=== PATIENT | female | born 1970 | race Caucasian/White ===

== ENCOUNTER 2019-04-17 19:44 | Emergency (ER) | payer MEDICAID ==
[~2019-04-17] VITALS: Ht 154.9 cm; Wt 50.0 kg
[2019-04-17 19:45] VITALS: BP 122/67
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
--- NOTE | 2019-04-17 19:55 | NUR ---
OUTSIDE OF ER LOBBY SAW PATIENT BEING GENTLY CARRIED AWAY BY A MAN. HE PICKED HER UP FROM THE CEMENT
--- NOTE | 2019-04-17 20:15 | NUR ---
PATIENT IN FASTRACK SCREAMING OBSCENITIES, THREW HERSELF ON THE FLOOR FROM HER CHAIR IN BED C AND WAS CRAWLING ACROSS THE FLOOR SCREAMING "YOU FUCKERS WONT HELP ME" "BITCHES" ATTEMPTED TO REASON WITH PATIENT THAT SHE CAN NOT BE SEEN BY A MD OR PA IF SHE IS IN THE MIDDLE OF THE FLOOR. ALSO, SECURITY TOLD PATIENT SHE CAN EITHER GET BACK IN HER ROOM FOR TREATMENT OR BE ESCORTED OUT. PATIENT CHOOSE TO STAY: ASSISTED PATIENT INTO A WHEELCHAIR AND BACK TO [facility]
[2019-04-17] MEDS ORDERED: HYDROcodone/acetaminophen 5mg/325mg tablet PO ONE (20:20)
--- NOTE | 2019-04-17 20:25 | NUR ---
PATIENT AGREEING TO STAY AND BE TREATED AFTER 2 PREVIOUS OUTBURSTS: ONE OUTSIDE AND ONE INSIDE IN FASTTRACK. PATIENT LITERALLY YELLING OUT IN PAIN: DEFORMITY TO RIGHT ANKLE PATIENT REFUSED TO KEEP LEG FROM MOVING TO ASSESS FOOT/ ANKLE: COLOR PINK
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
[2019-04-17] MEDS ORDERED: HYDR-3965 PO (20:57)
== END 2019-04-17 21:06 | disposition home or self-care (01) ==
LOC: ER 19:45
DX: S82.831A Other fracture of upper and lower end of right fibula, initial encounter for closed fracture (principal); F17.200 Nicotine dependence, unspecified, uncomplicated; Z98.890 Other specified postprocedural states; X50.1XXA Overexertion from prolonged static or awkward postures, initial encounter; Y93.89 Activity, other specified; Y92.89 Other specified places as the place of occurrence of the external cause; Y99.8 Other external cause status
CPT/HCPCS: 29515; 73610; 99283

== ENCOUNTER 2019-04-20 12:54 | Emergency (ER) | payer MEDICAID ==
[~2019-04-20] VITALS: Ht 160 cm; Wt 52.3 kg
[~2019-04-20 12:54] MED LIST: HYDR-3965 PO
[2019-04-20 13:02] VITALS: BP 110/79
[2019-04-20] MEDS ORDERED: ibuprofen tablet 400 MG TABLET PO ONE (13:40)
[2019-04-20] MEDS ORDERED: IBUP-1984 PO (13:42)
[2019-04-20] MEDS ORDERED: HYDR-4383 PO (13:42)
== END 2019-04-20 13:49 | disposition home or self-care (01) ==
LOC: ER 12:55
DX: S82.831D Other fracture of upper and lower end of right fibula, subsequent encounter for closed fracture with routine healing (principal); F10.99 Alcohol use, unspecified with unspecified alcohol-induced disorder; Z98.890 Other specified postprocedural states; Z79.899 Other long term (current) drug therapy; W18.39XD Other fall on same level, subsequent encounter; Y90.9 Presence of alcohol in blood, level not specified
CPT/HCPCS: 99284

== ENCOUNTER 2019-04-24 22:22 | Emergency (ER) | payer MEDICAID ==
[~2019-04-24] VITALS: Ht 154.9 cm; Wt 54.5 kg
[~2019-04-24 22:22] MED LIST changes: +HYDR-4383 PO; +IBUP-1984 PO
[2019-04-24 23:04] VITALS: BP 148/93
== END 2019-04-24 23:12 | disposition home or self-care (01) ==
LOC: ER 22:23
DX: S82.831D Other fracture of upper and lower end of right fibula, subsequent encounter for closed fracture with routine healing (principal); Z47.89 Encounter for other orthopedic aftercare; Z79.1 Long term (current) use of non-steroidal anti-inflammatories (NSAID); Z79.899 Other long term (current) drug therapy; Z98.890 Other specified postprocedural states; W18.39XD Other fall on same level, subsequent encounter
CPT/HCPCS: 29515; 99284

== ENCOUNTER 2019-05-01 12:22 | Emergency (ER) | payer MEDICAID ==
[~2019-05-01] VITALS: Ht 154.9 cm; Wt 52.3 kg
[~2019-05-01 12:22] MED LIST changes: -HYDR-3965 PO
[2019-05-01 12:49] VITALS: BP 131/84
--- NOTE | 2019-05-01 14:35 | NUR ---
LUANA talked with pt. officer who was here has seen her a few times since she broke her ankle and states the pt's current story is not accurate as to how she obtained her injury to her ankle. officer's are done talking with pt.
== END 2019-05-01 14:56 | disposition home or self-care (01) ==
LOC: ER 12:23
DX: S90.811A Abrasion, right foot, initial encounter (principal); F10.99 Alcohol use, unspecified with unspecified alcohol-induced disorder; Z98.890 Other specified postprocedural states; Z79.899 Other long term (current) drug therapy; X58.XXXA Exposure to other specified factors, initial encounter; Y93.89 Activity, other specified; Y92.89 Other specified places as the place of occurrence of the external cause; Y99.8 Other external cause status; Y90.9 Presence of alcohol in blood, level not specified
CPT/HCPCS: 99281; 99283

== ENCOUNTER 2019-07-06 18:58 | Emergency (ER) | payer MEDICAID ==
[~2019-07-06] VITALS: Ht 154.9 cm; Wt 52.3 kg
[~2019-07-06 18:58] MED LIST changes: -IBUP-1984 PO
[2019-07-06 19:11] VITALS: BP 116/67
--- NOTE | 2019-07-06 19:38 | NUR ---
TO XRAY VIA WHEELCHAIR WITH XR TECH
== END 2019-07-06 22:37 | disposition home or self-care (01) ==
LOC: ER 18:58
DX: S82.831A Other fracture of upper and lower end of right fibula, initial encounter for closed fracture (principal); F12.90 Cannabis use, unspecified, uncomplicated; F17.200 Nicotine dependence, unspecified, uncomplicated; Z47.89 Encounter for other orthopedic aftercare; Z79.899 Other long term (current) drug therapy; Z98.890 Other specified postprocedural states; X58.XXXA Exposure to other specified factors, initial encounter; Y93.89 Activity, other specified; Y92.89 Other specified places as the place of occurrence of the external cause; Y99.8 Other external cause status
CPT/HCPCS: 29515; 73610; 99283

== ENCOUNTER 2019-07-23 12:43 | Emergency (ER) | payer MEDICAID ==
[~2019-07-23] VITALS: Ht 154.9 cm; Wt 57.0 kg
[2019-07-23 12:45] VITALS: BP 130/77
[2019-07-23 13:33] LABS: BASOPHILS # (AUTO) 0.1 X10'3 (0-0.2); BASOPHILS % (AUTO) 1.2 % (0-1); EOSINOPHILS # (AUTO) 0.2 X10'3 (0-0.9); EOSINOPHILS % (AUTO) 2.5 % (0-6); HEMATOCRIT 42.6 % (35.0-45.0); HEMOGLOBIN 14.5 g/dl (12.0-16.0); LYMPHOCYTES # (AUTO) 3.6 X10'3 (1.1-4.8); LYMPHOCYTES % (AUTO) 43.2 % (21-51); MEAN CORPUSCULAR HEMOGLOBIN 34.8 PG (27.0-31.0); MEAN CORPUSCULAR HGB CONC 34.1 g/dL (33.0-36.5); MEAN PLATELET VOLUME 7.6 FL (7.4-10.4); MONOCYTES # (AUTO) 0.5 X10'3 (0-0.9); MONOCYTES % (AUTO) 5.8 % (2-12); NEUTROPHILS % (AUTO) 47.3 % (42-75); PLATELET COUNT 380 X10'3 (140-440); RED BLOOD COUNT 4.18 X10'6 (4.20-5.60); RED CELL DISTRIBUTION WIDTH 13.1 % (11.5-14.5); WHITE BLOOD COUNT 8.4 X10'3 (4.5-11.0)
--- NOTE | 2019-07-23 13:46 | NUR ---
PT. IS OUT IN THE PARKING LOT, INTOXICATED AND YELLING SHE WOULD NOT BRING HER DOG TO THIS HOSPITAL.. SECURITLY AND EMS ASSISTING PT.
[2019-07-23 13:47] LABS: ALANINE AMINOTRANSFERASE 32 U/L (12-78); ALBUMIN 3.8 G/DL (3.4-5.0); ALKALINE PHOSPHATASE 76 IU/L (46-116); ANION GAP 9 (8-16); ASPARTATE AMINO TRANSFERASE 21 U/L (10-37); BILIRUBIN,TOTAL 0.2 MG/DL (0.1-1.0); BLOOD UREA NITROGEN 14 MG/DL (7-18); BUN/CREATININE RATIO 18.2 (6.6-38.0); CALCIUM 9.2 MG/DL (8.5-10.1); CHLORIDE 101 MMOL/L (99-107); CREATININE 0.77 MG/DL (0.40-0.90); GLUCOSE 79 MG/DL (70-104); LIPASE 278 U/L (73-393); POTASSIUM 3.8 MMOL/L (3.5-5.1); SODIUM 140 MMOL/L (135-145); TOTAL CARBON DIOXIDE 30.2 MMOL/L (24-32); TOTAL PROTEIN 7.8 G/DL (6.4-8.2); eGFR 80 ML/MIN
== END 2019-07-23 14:20 | disposition left against medical advice (07) ==
LOC: ER 12:44
DX: F10.239 Alcohol dependence with withdrawal, unspecified (principal); Z53.21 Procedure and treatment not carried out due to patient leaving prior to being seen by health care provider; Y90.9 Presence of alcohol in blood, level not specified
CPT/HCPCS: 36415; 80053; 83690; 85025

== ENCOUNTER 2019-07-31 08:54 | Emergency (ER) | payer MEDICAID ==
[~2019-07-31] VITALS: Ht 154.9 cm; Wt 52.3 kg
[2019-07-31] MEDS ORDERED: gabapentin 400mg capsule PO STA (09:15)
[2019-07-31 09:29] VITALS: BP 129/66
[2019-07-31 09:40] LABS: CLARITY,URINE CLEAR (Clear); COLOR,URINE STRAW (Yellow); GLUCOSE, URINE NEGATIVE (Neg); KETONES,URINE NEGATIVE (Neg); LEUKOCYTE ESTERASE ,URINE NEGATIVE (Neg); NITRITES, URINE NEGATIVE (Neg); OCCULT BLOOD,URINE NEGATIVE (Neg); PH,URINE 6.5 (4.8-8.0); PROTEIN,URINE NEGATIVE (Neg); UROBILINOGEN,URINE 0.2 E.U/dL (0.2-1.0)
[2019-07-31 09:44] LABS: UA COLLECTION TYPE CLN CATCH MIDSTREAM
[2019-07-31 09:47] LABS: URINE HCG NEGATIVE (NEG)
[2019-07-31] MEDS ORDERED: GABA-532 PO (09:54)
== END 2019-07-31 10:26 | disposition home or self-care (01) ==
LOC: ER 08:55
DX: F10.129 Alcohol abuse with intoxication, unspecified (principal); R07.89 Other chest pain; F12.90 Cannabis use, unspecified, uncomplicated; Z98.890 Other specified postprocedural states; Z79.899 Other long term (current) drug therapy; Y90.0 Blood alcohol level of less than 20 mg/100 ml
CPT/HCPCS: 36415; 71045; 81003; 81025; 84484; 93005; 99284

== ENCOUNTER 2019-09-12 11:19 | Emergency (ER) | payer MEDICAID ==
[~2019-09-12] VITALS: Ht 154.9 cm; Wt 58.0 kg
[~2019-09-12 11:19] MED LIST changes: +GABA-532 PO
[2019-09-12 11:35] VITALS: BP 126/83
[2019-09-12] MEDS ORDERED: clindamycin 150mg capsule PO ONE (12:20)
[2019-09-12] MEDS ORDERED: ibuprofen tablet 400 MG TABLET PO ONE (12:20)
[2019-09-12] MEDS ORDERED: bacitracin 15gm ointment TP ONE (12:20)
[2019-09-12] MEDS ORDERED: acetaminophen 325mg tablet PO ONE (12:20)
[2019-09-12] MEDS ORDERED: TETanus/Pertussis (Acell)/Diphther VAC/PF (Tdap-Adult) 0.5ml syringe IMVAC ONE (12:20)
[2019-09-12] MEDS ORDERED: ondansetron 4mg rapidly disintigrating tab PO ONE (12:20)
[2019-09-12] MEDS ORDERED: CLIN150C8 PO (12:24)
--- NOTE | 2019-09-12 12:29 | NUR ---
REPORTED INCIDENT TO [facility]. OFFICER WILL RESPOND.
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
--- NOTE | 2019-09-12 13:35 | NUR ---
LUANA officer travis case # [id number]
== END 2019-09-12 13:15 | disposition home or self-care (01) ==
LOC: ER 11:20
DX: L03.012 Cellulitis of left finger (principal); F12.90 Cannabis use, unspecified, uncomplicated; Z98.890 Other specified postprocedural states
CPT/HCPCS: 90715; 99284

== ENCOUNTER 2019-10-15 17:56 | Emergency (ER) | payer MEDICAID ==
[~2019-10-15] VITALS: Ht 154.9 cm; Wt 53.6 kg
[~2019-10-15 17:56] MED LIST changes: +CLIN150C8 PO
[2019-10-15 18:08] VITALS: BP 118/76
== END 2019-10-15 20:10 | disposition left against medical advice (07) ==
LOC: ER 17:56
DX: R10.84 Generalized abdominal pain (principal); Z59.0 Homelessness; Z53.21 Procedure and treatment not carried out due to patient leaving prior to being seen by health care provider

== ENCOUNTER 2019-10-25 10:38 | Emergency (ER) | payer MEDICAID ==
[~2019-10-25] VITALS: Ht 154.9 cm; Wt 52.3 kg
[2019-10-25 10:54] VITALS: BP 146/92
--- NOTE | 2019-10-25 11:15 | NUR ---
PT. IS OUT OF HER ROOM YELLING THAT SHE HAS A RIGHT TO SEE A DOCTOR. " I WANT A FUCKING DOCTOR RIGHT NOW". I WALKED THE PT. BACK INTO HER ROOM. I TOLD HER THAT HER BEHAVIOR WAS INAPPROPRIATE, I EXPLAINED TO HER THAT WE ALSO WANTED HERE TO BE SEEN BUT, WE HAVE CHILDREN IN THE ER AND WE COULD NOT HAVE HER YELLING AND SWEARING". PT. LAYED DOWN ON THE GURNEY I COVERED HER UP WITH A WARM BLANKET AND TOLD HER THE PHYSICIAN WOULD BE IN SOON SHE COULD.
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
[2019-10-25 11:55] LABS: CLARITY,URINE SLIGHTLY CLOUDY (Clear); COLOR,URINE YELLOW (Yellow); GLUCOSE, URINE NEGATIVE (Neg); KETONES,URINE NEGATIVE (Neg); LEUKOCYTE ESTERASE ,URINE MODERATE (Neg); NITRITES, URINE POSITIVE (Neg); OCCULT BLOOD,URINE TRACE-INTACT (Neg); PH,URINE 6.5 (4.8-8.0); PROTEIN,URINE NEGATIVE (Neg); UROBILINOGEN,URINE 0.2 E.U/dL (0.2-1.0)
[2019-10-25 12:05] LABS: UA COLLECTION TYPE VOIDED
[2019-10-25 12:11] LABS: BACTERIA,URINE 4+ /HPF (Neg); RBC,URINE 0-2 /HPF (0-2); WBC,URINE 30-50 /HPF (0-4)
[2019-10-25 12:12] LABS: SQUAMOUS EPITHELIAL CELL,UR NONE SEEN /LPF (FEW); WBC CLUMPS,URINE FEW /HPF (NEGATIVE)
== END 2019-10-25 12:21 | disposition left against medical advice (07) ==
LOC: ER 10:39
DX: F10.129 Alcohol abuse with intoxication, unspecified (principal); Z53.21 Procedure and treatment not carried out due to patient leaving prior to being seen by health care provider
CPT/HCPCS: 81001; 87077; 87088; 87186

== ENCOUNTER 2019-11-23 02:20 | Emergency (ER) | payer MEDICAID ==
[2019-11-23] MEDS ORDERED: diphenhydrAMINE 25mg capsule PO ONE (02:29)
== END 2019-11-23 02:38 | disposition home or self-care (01) ==
LOC: ER 02:20
DX: B86 Scabies (principal); T78.49XA Other allergy, initial encounter; J02.9 Acute pharyngitis, unspecified; F17.200 Nicotine dependence, unspecified, uncomplicated; Z59.0 Homelessness; X58.XXXA Exposure to other specified factors, initial encounter
CPT/HCPCS: 99283; Q0163

== ENCOUNTER 2019-11-27 18:23 | Emergency (ER) | payer MEDICAID ==
[~2019-11-27] VITALS: Ht 167.6 cm; Wt 71.0 kg
[2019-11-27 18:30] VITALS: BP 138/82
== END 2019-11-27 18:40 | disposition left against medical advice (07) ==
LOC: ER 18:25
DX: R21 Rash and other nonspecific skin eruption (principal); Z53.21 Procedure and treatment not carried out due to patient leaving prior to being seen by health care provider

== ENCOUNTER 2020-06-16 16:29 | Emergency (ER) | payer MEDICAID ==
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
== END 2020-06-16 16:50 | disposition left against medical advice (07) ==
LOC: ER 16:30
DX: R50.9 Fever, unspecified (principal); Z53.21 Procedure and treatment not carried out due to patient leaving prior to being seen by health care provider

== ENCOUNTER 2020-06-17 07:44 | Emergency (ER) | payer MEDICAID ==
[~2020-06-17] VITALS: Ht 154.9 cm; Wt 55.4 kg
[2020-06-17 07:45] VITALS: BP 112/47
--- NOTE | 2020-06-17 08:09 | NUR ---
While waiting in waiting room, pt became very combative, using foul language, swinging at staff member. Pt was escorted out of the ED by security.
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
== END 2020-06-17 08:13 | disposition left against medical advice (07) ==
LOC: ER 07:45
DX: L02.91 Cutaneous abscess, unspecified (principal); Z53.21 Procedure and treatment not carried out due to patient leaving prior to being seen by health care provider

== ENCOUNTER 2020-06-18 18:25 | Emergency (ER) | payer MEDICAID ==
[~2020-06-18] VITALS: Ht 154.9 cm; Wt 54.5 kg
[2020-06-18 18:38] VITALS: BP 114/61
--- NOTE | 2020-06-18 19:24 | NUR ---
Pt. left before being seen by provider, pt. stated "I'm going to smoke". Pt. informed she could not leave to smoke and left anyway, provider and RN both looked for pt. in parking lot and at bus stop to try to convince pt. to return to the hospital with pt. unable to be located.
== END 2020-06-18 19:15 | disposition left against medical advice (07) ==
LOC: ER 18:25
DX: R50.9 Fever, unspecified (principal); Z53.21 Procedure and treatment not carried out due to patient leaving prior to being seen by health care provider

== ENCOUNTER 2020-06-27 19:48 | Emergency (ER) | payer MEDICAID | END 2020-06-27 21:01 | disposition home or self-care (01) | LOC: ER 19:48 | DX: B34.9 Viral infection, unspecified (principal); R53.83 Other fatigue; R50.9 Fever, unspecified; F12.90 Cannabis use, unspecified, uncomplicated; Z98.890 Other specified postprocedural states; Z72.89 Other problems related to lifestyle; Z79.2 Long term (current) use of antibiotics; Z79.899 Other long term (current) drug therapy | CPT/HCPCS: 99281 ==

== ENCOUNTER 2021-08-26 13:46 | Inpatient (IN) | payer MEDICAID ==
[~2021-08-26] VITALS: Ht 170.2 cm; Wt 76.0 kg
--- NOTE | 2021-08-26 14:01 | NUR ---
ALL WET AND COLD CLOTHES REMOVED, WARM BLANKETS APPLIED. HOB ELEVATED 45
[2021-08-26 14:27] LABS: BASOPHILS % (AUTO) 0.9 % (0-1); EOSINOPHILS # (AUTO) 0.1 X10'3 (0-0.9); EOSINOPHILS % (AUTO) 1.8 % (0-6); HEMATOCRIT 44.8 % (35.0-45.0); HEMOGLOBIN 15.6 g/dl (12.0-16.0); LYMPHOCYTES # (AUTO) 1.5 X10'3 (1.1-4.8); LYMPHOCYTES % (AUTO) 29.2 % (21-51); MEAN CORPUSCULAR HEMOGLOBIN 34.8 PG (27.0-31.0); MEAN CORPUSCULAR HGB CONC 34.9 g/dL (33.0-36.5); MEAN CORPUSCULAR VOLUME 99.6 FL (78-98); MEAN PLATELET VOLUME 7.8 FL (7.4-10.4); MONOCYTES # (AUTO) 0.4 X10'3 (0-0.9); MONOCYTES % (AUTO) 8.2 % (2-12); NEUTROPHILS % (AUTO) 59.9 % (42-75); PLATELET COUNT 308 X10'3 (140-440); RED BLOOD COUNT 4.49 X10'6 (4.20-5.60); RED CELL DISTRIBUTION WIDTH 12.8 % (11.5-14.5); WHITE BLOOD COUNT 5.1 X10'3 (4.5-11.0)
[2021-08-26 14:37] LABS: ALANINE AMINOTRANSFERASE 65 U/L (12-78); ALBUMIN 4.2 G/DL (3.4-5.0); ALKALINE PHOSPHATASE 120 IU/L (46-116); ANION GAP 15 (8-16); ASPARTATE AMINO TRANSFERASE 38 U/L (10-37); BILIRUBIN,TOTAL 0.2 MG/DL (0.1-1.0); BLOOD UREA NITROGEN 9 MG/DL (7-18); BUN/CREATININE RATIO 13.4 (6.6-38.0); CALCIUM 9.7 MG/DL (8.5-10.1); CHLORIDE 103 MMOL/L (99-107); CREATININE 0.67 MG/DL (0.40-0.90); ETHANOL 0.151 GM/DL (0.0-0.010); GLUCOSE 79 MG/DL (70-104); POTASSIUM 3.1 MMOL/L (3.5-5.1); SODIUM 146 MMOL/L (135-145); TOTAL CARBON DIOXIDE 27.6 MMOL/L (24-32); TOTAL PROTEIN 8.5 G/DL (6.4-8.2); eGFR > 90 ML/MIN
[2021-08-26 14:41] LABS: ACETAMINOPHEN < 2.0 UG/ML (10-30)
--- NOTE | 2021-08-26 14:51 | NUR ---
Poison control contacted at this time, their recommendations given to Dr. Vanegas. They recommend 6 hrs obs time, repeat ASA and EKG in 3 hrs, watching for QRS prolongation and seizures. Recommend potassium replacement to 4, Mg to 2.
--- NOTE | 2021-08-26 15:11 | NUR ---
TO CT WITH TECH
[2021-08-26 15:14] LABS: MAGNESIUM 2.2 MG/DL (1.5-2.4)
[2021-08-26] MEDS: potassium Cl 10 mEq/100mL bag IV SCH ×4 (15:34→17:55)
--- NOTE | 2021-08-26 17:27 | NUR ---
PT SITTING UP, AGITATED, PULLING OFF WIRES AND CORDS. SHE IS MORE TALKATIVE NOW, REPORTS THAT "MY WAS HERE." NO VISITORS. SHE IS NAUSEATED. MD HAS BEEN AT BEDSIDE TO SH[place].
[2021-08-26] MEDS ORDERED: normal saline 1000ml 1,000 ML IV ONE ×2 (17:30→20:35)
[2021-08-26] MEDS ORDERED: LORazepam 2 mg/ml vial IV ONE ×4 (17:30→23:30)
--- NOTE | 2021-08-26 17:51 | NUR ---
PT CHANGED INTO GREEN SCRUBS PER POLICY
[2021-08-26 18:15] LABS: URINE AMPHETAMINE SCREEN NEGATIVE (Neg); URINE BARBITUATE SCREEN NEGATIVE (Neg); URINE BENZODIAZEPINES SCREEN NEGATIVE (Neg); URINE CANNABINOID SCREEN POSITIVE (Neg); URINE COCAINE SCREEN NEGATIVE (Neg); URINE METHADONE SCREEN NEGATIVE (Neg); URINE OPIATE SCREEN NEGATIVE (Neg); URINE PHENCYCLIDINE SCREEN NEGATIVE (Neg)
--- NOTE | 2021-08-26 19:18 | NUR ---
PT AGAIN AGITATED, HALLUCINATING. AWARE. PT MOVED TO ROOM 16, VISIBLE FROM MANAGER TRAINING STATION
--- NOTE | 2021-08-26 20:10 | NUR ---
Gena from Poison Control cld back, I gave her EKG and Lab results. Their recommendation is to continue to monitor electrolites and vitals.
--- NOTE | 2021-08-26 20:33 | NUR ---
PT INTERMITTENTLY TWITCHING, MUMBLING WORDS. DR TREVINO AT BEDSIDE TO REASSESS.
[2021-08-26] MEDS ORDERED: thiamine 100mg/ml 2ml inj. IV ONE (20:40)
--- NOTE | 2021-08-26 22:29 | NUR ---
POISON CONTROL CONTACTED AT REQ OF . THEY RECOMMEND REPEAT LABS (BMP AND MG) AND REPEAT EKG. WILL ORDER.
[2021-08-26 22:58] LABS: ALBUMIN 3.6 G/DL (3.4-5.0); ANION GAP 14 (8-16); BLOOD UREA NITROGEN 8 MG/DL (7-18); BUN/CREATININE RATIO 12.7 (6.6-38.0); CALCIUM 8.8 MG/DL (8.5-10.1); CHLORIDE 104 MMOL/L (99-107); CREATININE 0.63 MG/DL (0.40-0.90); GLUCOSE 86 MG/DL (70-104); MAGNESIUM 1.9 MG/DL (1.5-2.4); POTASSIUM 3.5 MMOL/L (3.5-5.1); SODIUM 145 MMOL/L (135-145); eGFR > 90 ML/MIN
[2021-08-26] MEDS ORDERED: magnesium 2GM in 50ml NS 50 ML IV ONE (23:00)
--- NOTE | 2021-08-26 23:01 | NUR ---
DR CHU AT BEDSIDE, AWARE OF PT SITUATION. CONTINUES TO BE INTERMITTENTLY AGITATED, MUMBLING. REPEAT EKG DONE AND LABS HAVE BEEN DRAWN.
--- NOTE | 2021-08-26 23:21 | NUR ---
PT WITH WET DIAPER, CHANGED NOW. PT ATTEMPTING TO GET OUT OF BED, AT BEDSIDE. ATIVAN GIVEN. PER MD, PT TO GET ONE GM OF MG, TOOK OUT 1/2 OF THE DOSE OF THE 2 GM BAG WHICH IS HOW IT IS SUPPLIED HERE.
[2021-08-26] MEDS ORDERED: potassium Cl 20 mEq SR tablet PO STA (23:26)
--- NOTE | 2021-08-26 23:28 | NUR ---
DR CHU AWARE OF LABS, DOES NOT WANT TO REPLACE CA AT THIS TIME
--- NOTE | 2021-08-27 00:32 | NUR ---
Moved patient to hospital bed w/o problem Addendum: 08/27/21 at 0033 by ISAI wrong patient
[2021-08-27] MEDS ORDERED: POTASSIUM BICARB 20meq eff tab 20 MEQ TABLET.EFF PO SCH (00:35)
[2021-08-27] MEDS ORDERED: POTASSIUM BICARB 20meq eff tab 20 MEQ TABLET.EFF PO ONE (00:35)
[2021-08-27] MEDS ORDERED: LORazepam 2 mg/ml vial IV ONE ×2 (00:55→05:10)
[2021-08-27] MEDS ORDERED: normal saline 1000ml 1,000 ML IV ONE (00:55)
[2021-08-27 03:01] LABS: CREATINE KINASE 82 U/L (26-192)
[2021-08-27] MEDS ORDERED: NO HOME MEDS (03:50)
[2021-08-27] MEDS ORDERED: potassium CL 10mEq/100ml bag 100 ML IV PRN (04:10)
[2021-08-27] MEDS ORDERED: magnesium 4gm in 100ml NS 100 ML IV PRN (04:10)
[2021-08-27] MEDS ORDERED: magnesium 2GM in 50ml NS 50 ML IV PRN (04:10)
[2021-08-27] MEDS ORDERED: ondansetron/PF 4mg/2ml inj IV PRN (04:10)
--- NOTE | 2021-08-27 05:58 | NUR ---
Patient more awake, trying to climb out of bed and pulling on things. Ativan still needed for agitation.
[2021-08-27] MEDS: LORazepam 2 mg/ml vial IV PRN ×5 (06:19→15:25)
[2021-08-27] MEDS ORDERED: cloNIDine 0.1 mg tablet PO ONE (06:30)
[2021-08-27] MEDS ORDERED: cloNIDine 0.1 MG/24 HOUR patch (7 day patch) TD ONE (06:30)
[2021-08-27] MEDS ORDERED: haloperidol lactate 5mg/ml inj IM ONE (06:30)
--- NOTE | 2021-08-27 06:30 | NUR ---
assumed care of pt. pt found in bed, tachycardic, appears to be hallucinating. pt is mumbling, unable to understand her words. pt is not coherent enough to drink water out of a straw, will hold po meds until pt is more coherent. repositioned in bed, in direct sight of nurses station. will closely monitor.
--- NOTE | 2021-08-27 06:30 | NUR ---
dr. holland at bedside
[2021-08-27] MEDS ORDERED: thiamine 100mg/ml 2ml inj. IV ONE (06:40)
[2021-08-27] MEDS: normal saline 1000ml 1,000 ML IV SCH ×3 (06:45→19:46)
[2021-08-27] MEDS: K and/or MAG REPLACEMENT MC SCH ×2 (08:00→19:53)
--- NOTE | 2021-08-27 08:00 | NUR ---
pt sleeping in bed, vss, no distress noted. in direct view of nurses station.
[2021-08-27 09:06] LABS: MAGNESIUM 2.4 MG/DL (1.5-2.4); POTASSIUM 3.5 MMOL/L (3.5-5.1)
--- NOTE | 2021-08-27 09:43 | NUR ---
allison from poison control called for update on pt. recommends repeat ekg, and to continue monitor until pt back to baseline.
[2021-08-27] MEDS: heparin, porcine 5000 units/ml vial SQ SCH ×2 (11:24→19:48)
--- NOTE | 2021-08-27 11:40 | NUR ---
pt awake, continues to mumble. unable to understand pt's words. appears to still be hallucinating. connected to all monitors.
--- NOTE | 2021-08-27 13:00 | NUR ---
pt brief and kristina changed for pt. pt able to state she is in "[place], [place]" sleeping in bed.
--- NOTE | 2021-08-27 15:21 | NUR ---
REPORT RECEIVED FROM SEMI AUTOMATIC SEWING MACHINE OPERATOR. AWAITING PATIENT ARRIVAL.
[2021-08-27 15:49] VITALS: BP 148/86
--- NOTE | 2021-08-27 16:00 | NUR ---
PATIENT ARRIVED TO FLOOR. VSS. NO COMPLAINTS. STILL VERY FATIGUED, SLURRED SPEECH. BED ALARM ON AND AUDIBLE.
--- NOTE | 2021-08-27 16:22 | NUR ---
PAGE SENT TO [facility]... 279P Adilson DUVALL: PATIENT NEEDS TO BE DARTED. THANK YOU!
--- NOTE | 2021-08-27 18:06 | NUR ---
PAGER ID: [phone] MESSAGE: [phone] Adilson DUVALL: WOULD YOU LIKE THE FULL ETOH PROTOCOL WITH ACCUCHECKS, ETC. THANK YOU, [phone]
--- NOTE | 2021-08-27 18:06 | NUR ---
Problems reprioritized. Patient report given, questions answered & plan of care reviewed with COCO RN.
[2021-08-27] MEDS ORDERED: LORazepam 1 MG tablet PO PRN (18:20)
[2021-08-27] MEDS ORDERED: haloperidol lactate 5mg/ml inj IM PRN (18:20)
[2021-08-27] MEDS ORDERED: LORazepam 2 mg/ml vial IV PRN (18:20)
[2021-08-27] MEDS ORDERED: haloperidol 5mg tablet PO PRN (18:20)
[2021-08-28] MEDS: thiamine 100mg/ml 2ml inj. IV SCH ×2 (03:47→08:23)
[2021-08-28] MEDS: normal saline 1000ml 1,000 ML IV SCH (05:42)
[2021-08-28 05:58] LABS: BASOPHILS % (AUTO) 0.5 % (0-1); EOSINOPHILS # (AUTO) 0.1 X10'3 (0-0.9); EOSINOPHILS % (AUTO) 2.8 % (0-6); HEMATOCRIT 40.8 % (35.0-45.0); HEMOGLOBIN 13.8 g/dl (12.0-16.0); LYMPHOCYTES # (AUTO) 1.8 X10'3 (1.1-4.8); LYMPHOCYTES % (AUTO) 37.1 % (21-51); MEAN CORPUSCULAR HEMOGLOBIN 34.3 PG (27.0-31.0); MEAN CORPUSCULAR HGB CONC 33.9 g/dL (33.0-36.5); MEAN CORPUSCULAR VOLUME 101.2 FL (78-98); MEAN PLATELET VOLUME 8.1 FL (7.4-10.4); MONOCYTES # (AUTO) 0.4 X10'3 (0-0.9); MONOCYTES % (AUTO) 7.3 % (2-12); NEUTROPHILS # (AUTO) 2.6 X10'3 (1.8-7.7); NEUTROPHILS % (AUTO) 52.3 % (42-75); PLATELET COUNT 257 X10'3 (140-440); RED BLOOD COUNT 4.03 X10'6 (4.20-5.60); RED CELL DISTRIBUTION WIDTH 12.6 % (11.5-14.5); WHITE BLOOD COUNT 4.9 X10'3 (4.5-11.0)
[2021-08-28 06:16] LABS: ALANINE AMINOTRANSFERASE 43 U/L (12-78); ALBUMIN 3.4 G/DL (3.4-5.0); ALBUMIN/GLOBULIN RATIO 0.9 (1.1-1.5); ALKALINE PHOSPHATASE 107 IU/L (46-116); ANION GAP 10 (8-16); ASPARTATE AMINO TRANSFERASE 19 U/L (10-37); BILIRUBIN,TOTAL 0.6 MG/DL (0.1-1.0); BLOOD UREA NITROGEN 10 MG/DL (7-18); BUN/CREATININE RATIO 18.2 (6.6-38.0); CALCIUM 9.1 MG/DL (8.5-10.1); CHLORIDE 105 MMOL/L (99-107); CREATININE 0.55 MG/DL (0.40-0.90); GLUCOSE 73 MG/DL (70-104); POTASSIUM 3.5 MMOL/L (3.5-5.1); SODIUM 140 MMOL/L (135-145); TOTAL CARBON DIOXIDE 25.5 MMOL/L (24-32); eGFR > 90 ML/MIN
--- NOTE | 2021-08-28 06:30 | NUR ---
Patient in room [facility]. I have received report from GIN Avila and had the opportunity to ask questions and assume patient care.
[2021-08-28] MEDS: K and/or MAG REPLACEMENT MC SCH (08:00)
[2021-08-28] MEDS ORDERED: multivitamins, therapeutics tablet PO SCH (08:00)
[2021-08-28] MEDS ORDERED: folic acid 1mg/0.2ml inj IV SCH (08:00)
[2021-08-28] MEDS: heparin, porcine 5000 units/ml vial SQ SCH (08:01)
[2021-08-28] MEDS ORDERED: MULT-25 PO (11:58)
[2021-08-29] MEDS ORDERED: LORazepam 2 mg/ml vial IV PRN (04:15)
[2021-08-29] MEDS ORDERED: LORazepam 1 MG tablet PO PRN (04:15)
[2021-08-31] MEDS ORDERED: LORazepam 1 MG tablet PO PRN (04:15)
[2021-08-31] MEDS ORDERED: thiamine 100mg tablet PO SCH (08:00)
[2021-09-01] MEDS ORDERED: folic acid 1mg tablet PO SCH (08:00)
[2021-09-01] MEDS ORDERED: thiamine 100mg tablet PO SCH (08:00)
== END 2021-08-28 12:26 | disposition home or self-care (01) | DRG 812 ==
LOC: ER 13:46 → UNDOADMIN 08-27 04:11 → ED HOLD 08-27 04:11 → SUR 3N 08-27 15:40
PROVIDERS: ADMIT Internal Medicine; ATTEND Family Medicine
DX: T44.3X1A Poisoning by other parasympatholytics [anticholinergics and antimuscarinics] and spasmolytics, accidental (unintentional), initial encounter (principal); G93.40 Encephalopathy, unspecified; F10.921 Alcohol use, unspecified with intoxication delirium; E87.0 Hyperosmolality and hypernatremia; Z20.822 Contact with and (suspected) exposure to COVID-19; F12.90 Cannabis use, unspecified, uncomplicated; E87.6 Hypokalemia; F10.939 Alcohol use, unspecified with withdrawal, unspecified; Z98.891 History of uterine scar from previous surgery; Y92.89 Other specified places as the place of occurrence of the external cause
CPT/HCPCS: 36415; 70450; 71045; 80048; 80053; 80305; 80320; 80329; 82550; 82948; 83735; 84132; 84443; 85025; 87081; 87635; 93005; 96361; 96365; 96375; 96376; 99285; C9803; G0378; J1630; J1644; J2060; J3411; J3475; J3480; J7030

== ENCOUNTER 2023-01-30 13:07 | Emergency (ER) | payer MEDICAID ==
[~2023-01-30] VITALS: Ht 154.9 cm; Wt 53.8 kg
[~2023-01-30 13:07] MED LIST changes: -CLIN150C8 PO; -GABA-532 PO; -HYDR-4383 PO; +MULT-25 PO
[2023-01-30 13:32] VITALS: BP 125/76
[2023-01-30 14:04] LABS: BASOPHILS % (AUTO) 0.2 % (0-1); EOSINOPHILS # (AUTO) 0.1 X10'3 (0-0.9); EOSINOPHILS % (AUTO) 0.9 % (0-6); HEMATOCRIT 45.6 % (35.0-45.0); HEMOGLOBIN 15.4 g/dl (12.0-16.0); LYMPHOCYTES # (AUTO) 3.7 X10'3 (1.1-4.8); LYMPHOCYTES % (AUTO) 31.8 % (21-51); MEAN CORPUSCULAR HEMOGLOBIN 33.7 PG (27.0-31.0); MEAN CORPUSCULAR HGB CONC 33.7 g/dL (33.0-36.5); MEAN PLATELET VOLUME 7.8 FL (7.4-10.4); MONOCYTES # (AUTO) 0.9 X10'3 (0-0.9); MONOCYTES % (AUTO) 7.9 % (2-12); NEUTROPHILS # (AUTO) 6.9 X10'3 (1.8-7.7); NEUTROPHILS % (AUTO) 59.2 % (42-75); PLATELET COUNT 389 X10'3 (140-440); RED BLOOD COUNT 4.56 X10'6 (4.20-5.60); RED CELL DISTRIBUTION WIDTH 13.8 % (11.5-14.5); WHITE BLOOD COUNT 11.7 X10'3 (4.5-11.0)
[2023-01-30 14:15] LABS: ALANINE AMINOTRANSFERASE 85 U/L (12-78); ALBUMIN 3.6 G/DL (3.4-5.0); ALBUMIN/GLOBULIN RATIO 0.8 (1.1-1.5); ALKALINE PHOSPHATASE 153 IU/L (46-116); ANION GAP 8 (8-16); ASPARTATE AMINO TRANSFERASE 89 U/L (10-37); BILIRUBIN,TOTAL 0.5 MG/DL (0.1-1.0); BLOOD UREA NITROGEN 10 MG/DL (7-18); BUN/CREATININE RATIO 12.3 (10.0-20.0); CALCIUM 9.8 MG/DL (8.5-10.1); CHLORIDE 95 MMOL/L (99-107); CREATININE 0.81 MG/DL (0.40-0.90); GLUCOSE 108 MG/DL (70-104); LIPASE 182 U/L (73-393); POTASSIUM 3.7 MMOL/L (3.5-5.1); SODIUM 137 MMOL/L (135-145); TOTAL CARBON DIOXIDE 33.7 MMOL/L (24-32); TOTAL PROTEIN 8.2 G/DL (6.4-8.2); eGFR 74 ML/MIN
== END 2023-01-30 16:07 | disposition left against medical advice (07) ==
LOC: ER 13:08
DX: R10.10 Upper abdominal pain, unspecified (principal); R11.10 Vomiting, unspecified; E86.0 Dehydration; Z53.21 Procedure and treatment not carried out due to patient leaving prior to being seen by health care provider
CPT/HCPCS: 36415; 80053; 83690; 85025; 99281

== ENCOUNTER 2023-02-02 14:21 | Emergency (ER) | payer MEDICAID ==
[~2023-02-02] VITALS: Ht 154.9 cm; Wt 54.6 kg
[2023-02-02 14:36] VITALS: BP 197/174
[2023-02-02 15:05] LABS: CLARITY,URINE CLOUDY (Clear); COLOR,URINE YELLOW (Yellow); GLUCOSE, URINE NEGATIVE (Neg); KETONES,URINE TRACE mg/dl (Neg); LEUKOCYTE ESTERASE ,URINE NEGATIVE (Neg); NITRITES, URINE NEGATIVE (Neg); OCCULT BLOOD,URINE TRACE-INTACT (Neg); PROTEIN,URINE 30 mg/dl (Neg); UROBILINOGEN,URINE 0.2 E.U/dL (0.2-1.0)
[2023-02-02 15:06] LABS: URINE HCG NEGATIVE (NEG)
[2023-02-02 15:18] LABS: UA COLLECTION TYPE CLN CATCH MIDSTREAM
[2023-02-02 15:19] LABS: HYALINE CASTS >30 /LPF (NEGATIVE); MUCUS STRANDS MANY /LPF (Neg); SQUAMOUS EPITHELIAL CELL,UR MANY /LPF (FEW)
[2023-02-02 15:21] LABS: BACTERIA,URINE 2+ /HPF (Neg); RBC,URINE 0-2 /HPF (0-2); WBC,URINE 0-4 /HPF (0-4)
[2023-02-02 15:47] LABS: BASOPHILS # (AUTO) 0.1 X10'3 (0-0.2); BASOPHILS % (AUTO) 0.5 % (0-1); EOSINOPHILS % (AUTO) 0.3 % (0-6); HEMATOCRIT 43.7 % (35.0-45.0); HEMOGLOBIN 14.8 g/dl (12.0-16.0); LYMPHOCYTES # (AUTO) 2.9 X10'3 (1.1-4.8); LYMPHOCYTES % (AUTO) 24.2 % (21-51); MEAN CORPUSCULAR HEMOGLOBIN 33.8 PG (27.0-31.0); MEAN CORPUSCULAR HGB CONC 33.8 g/dL (33.0-36.5); MEAN CORPUSCULAR VOLUME 99.8 FL (78-98); MEAN PLATELET VOLUME 7.6 FL (7.4-10.4); MONOCYTES # (AUTO) 0.6 X10'3 (0-0.9); MONOCYTES % (AUTO) 5.2 % (2-12); NEUTROPHILS # (AUTO) 8.3 X10'3 (1.8-7.7); NEUTROPHILS % (AUTO) 69.8 % (42-75); PLATELET COUNT 338 X10'3 (140-440); RED BLOOD COUNT 4.38 X10'6 (4.20-5.60); RED CELL DISTRIBUTION WIDTH 13.8 % (11.5-14.5); WHITE BLOOD COUNT 11.8 X10'3 (4.5-11.0)
[2023-02-02 15:53] LABS: ALANINE AMINOTRANSFERASE 98 U/L (12-78); ALBUMIN 3.3 G/DL (3.4-5.0); ALBUMIN/GLOBULIN RATIO 0.7 (1.1-1.5); ALKALINE PHOSPHATASE 169 IU/L (46-116); ANION GAP 14 (8-16); ASPARTATE AMINO TRANSFERASE 110 U/L (10-37); BILIRUBIN,TOTAL 0.4 MG/DL (0.1-1.0); BLOOD UREA NITROGEN 15 MG/DL (7-18); BUN/CREATININE RATIO 21.1 (10.0-20.0); CALCIUM 9.5 MG/DL (8.5-10.1); CHLORIDE 97 MMOL/L (99-107); CREATININE 0.71 MG/DL (0.40-0.90); GLUCOSE 76 MG/DL (70-104); LIPASE 60 U/L (73-393); POTASSIUM 3.7 MMOL/L (3.5-5.1); SODIUM 141 MMOL/L (135-145); TOTAL CARBON DIOXIDE 30.5 MMOL/L (24-32); TOTAL PROTEIN 8.2 G/DL (6.4-8.2); eGFR 86 ML/MIN
== END 2023-02-02 18:02 | disposition left against medical advice (07) ==
LOC: ER 14:22
DX: R11.2 Nausea with vomiting, unspecified (principal); Z53.21 Procedure and treatment not carried out due to patient leaving prior to being seen by health care provider
CPT/HCPCS: 36415; 80053; 81001; 81025; 83690; 85025; 99281

== ENCOUNTER 2023-02-03 10:26 | Emergency (ER) | payer MEDICAID ==
[~2023-02-03] VITALS: Ht 154.9 cm; Wt 54.5 kg
[2023-02-03 10:58] VITALS: BP 138/96
== END 2023-02-03 12:51 | disposition left against medical advice (07) ==
LOC: ER 10:26
DX: R10.9 Unspecified abdominal pain (principal); R11.10 Vomiting, unspecified; Z53.21 Procedure and treatment not carried out due to patient leaving prior to being seen by health care provider
CPT/HCPCS: 99281

== ENCOUNTER 2023-02-13 17:45 | Emergency (ER) | payer MEDICAID ==
[~2023-02-13] VITALS: Ht 154.9 cm; Wt 56.8 kg
[2023-02-13 17:47] VITALS: BP 146/116
[2023-02-13 18:43] LABS: EOSINOPHILS # (AUTO) 0.1 X10'3 (0-0.9); EOSINOPHILS % (AUTO) 1.3 % (0-6); HEMATOCRIT 41.4 % (35.0-45.0); HEMOGLOBIN 14.2 g/dl (12.0-16.0); LYMPHOCYTES # (AUTO) 2.2 X10'3 (1.1-4.8); LYMPHOCYTES % (AUTO) 48.4 % (21-51); MEAN CORPUSCULAR HEMOGLOBIN 34.1 PG (27.0-31.0); MEAN CORPUSCULAR HGB CONC 34.3 g/dL (33.0-36.5); MEAN CORPUSCULAR VOLUME 99.6 FL (78-98); MEAN PLATELET VOLUME 7.7 FL (7.4-10.4); MONOCYTES # (AUTO) 0.3 X10'3 (0-0.9); MONOCYTES % (AUTO) 6.6 % (2-12); NEUTROPHILS % (AUTO) 42.7 % (42-75); PLATELET COUNT 221 X10'3 (140-440); RED BLOOD COUNT 4.16 X10'6 (4.20-5.60); RED CELL DISTRIBUTION WIDTH 13.6 % (11.5-14.5); WHITE BLOOD COUNT 4.6 X10'3 (4.5-11.0)
--- NOTE | 2023-02-13 18:43 | NUR ---
pt not in the room, unsure where she is.
[2023-02-13 18:53] LABS: ALANINE AMINOTRANSFERASE 261 U/L (12-78); ALBUMIN 3.4 G/DL (3.4-5.0); ALBUMIN/GLOBULIN RATIO 0.8 (1.1-1.5); ALKALINE PHOSPHATASE 164 IU/L (46-116); ANION GAP 12 (8-16); ASPARTATE AMINO TRANSFERASE 220 U/L (10-37); BILIRUBIN,TOTAL 0.4 MG/DL (0.1-1.0); BLOOD UREA NITROGEN 8 MG/DL (7-18); BUN/CREATININE RATIO 10.8 (10.0-20.0); CALCIUM 9.1 MG/DL (8.5-10.1); CHLORIDE 97 MMOL/L (99-107); CREATININE 0.74 MG/DL (0.40-0.90); GLUCOSE 120 MG/DL (70-104); LIPASE 183 U/L (73-393); POTASSIUM 3.7 MMOL/L (3.5-5.1); SODIUM 138 MMOL/L (135-145); TOTAL CARBON DIOXIDE 29.4 MMOL/L (24-32); TOTAL PROTEIN 7.5 G/DL (6.4-8.2); eGFR 82 ML/MIN
== END 2023-02-13 19:19 | disposition left against medical advice (07) ==
LOC: ER 17:46
DX: R11.10 Vomiting, unspecified (principal); Z53.21 Procedure and treatment not carried out due to patient leaving prior to being seen by health care provider
CPT/HCPCS: 36415; 80053; 83690; 85025; 99281

== ENCOUNTER 2023-03-11 05:16 | Emergency (ER) | payer MEDICAID ==
[~2023-03-11] VITALS: Ht 154.9 cm; Wt 54.5 kg
[2023-03-11 05:27] VITALS: BP 118/76
== END 2023-03-11 06:12 | disposition left against medical advice (07) ==
LOC: ER 05:18
DX: R11.2 Nausea with vomiting, unspecified (principal); Z53.21 Procedure and treatment not carried out due to patient leaving prior to being seen by health care provider
CPT/HCPCS: 99281

== ENCOUNTER 2023-11-04 03:37 | Emergency (ER) | payer MEDICAID ==
[~2023-11-04] VITALS: Ht 154.9 cm; Wt 56.9 kg
[2023-11-04 04:00] LABS: BASOPHILS % (AUTO) 0.8 % (0-1); EOSINOPHILS # (AUTO) 0.3 X10'3 (0-0.9); EOSINOPHILS % (AUTO) 4.6 % (0-6); HEMATOCRIT 43.1 % (35.0-45.0); HEMOGLOBIN 14.6 g/dl (12.0-16.0); LYMPHOCYTES # (AUTO) 2.6 X10'3 (1.1-4.8); LYMPHOCYTES % (AUTO) 45.8 % (21-51); MEAN CORPUSCULAR HEMOGLOBIN 34.2 PG (27.0-31.0); MEAN CORPUSCULAR HGB CONC 33.9 g/dL (33.0-36.5); MEAN CORPUSCULAR VOLUME 100.8 FL (78-98); MEAN PLATELET VOLUME 7.3 FL (7.4-10.4); MONOCYTES # (AUTO) 0.3 X10'3 (0-0.9); MONOCYTES % (AUTO) 4.9 % (2-12); NEUTROPHILS # (AUTO) 2.5 X10'3 (1.8-7.7); NEUTROPHILS % (AUTO) 43.9 % (42-75); PLATELET COUNT 234 X10'3 (140-440); RED BLOOD COUNT 4.28 X10'6 (4.20-5.60); WHITE BLOOD COUNT 5.6 X10'3 (4.5-11.0)
[2023-11-04 04:13] LABS: ALANINE AMINOTRANSFERASE 167 U/L (12-78); ALBUMIN 4.3 G/DL (3.4-5.0); ALBUMIN/GLOBULIN RATIO 1.1 (1.1-1.5); ALKALINE PHOSPHATASE 124 IU/L (46-116); ANION GAP 5 (8-16); ASPARTATE AMINO TRANSFERASE 105 U/L (10-37); BILIRUBIN,TOTAL 0.3 MG/DL (0.1-1.0); BLOOD UREA NITROGEN 9 MG/DL (7-18); BUN/CREATININE RATIO 12.5 (10.0-20.0); CALCIUM 8.7 MG/DL (8.5-10.1); CHLORIDE 107 MMOL/L (99-107); CREATININE 0.72 MG/DL (0.40-0.90); GLUCOSE 87 MG/DL (70-104); POTASSIUM 4.9 MMOL/L (3.5-5.1); SODIUM 149 MMOL/L (135-145); TOTAL CARBON DIOXIDE 36.8 MMOL/L (24-32); TOTAL PROTEIN 8.2 G/DL (6.4-8.2); eCRCL 68 ML/MIN; eGFR 85 ML/MIN
[2023-11-04 04:21] LABS: PRO BRAIN NATRIURETIC PEPTIDE 249 PG/ML (0-125)
[2023-11-04 05:02] VITALS: BP 125/85; PULSE 91; RESP 18; TEMP 97.6; O2SAT 99
== END 2023-11-04 05:04 | disposition left against medical advice (07) ==
LOC: ER 03:39
DX: S00.03XA Contusion of scalp, initial encounter (principal); R07.81 Pleurodynia; F12.90 Cannabis use, unspecified, uncomplicated; Z79.899 Other long term (current) drug therapy; Z98.890 Other specified postprocedural states; X58.XXXA Exposure to other specified factors, initial encounter; Y93.89 Activity, other specified; Y92.89 Other specified places as the place of occurrence of the external cause; Y99.8 Other external cause status
CPT/HCPCS: 36415; 71045; 80053; 83880; 84484; 85025; 93005; 99285

== ENCOUNTER 2023-11-25 16:18 | Emergency (ER) | payer MEDICAID | END 2023-11-25 16:26 | disposition left against medical advice (07) | LOC: ER 16:19 | DX: R07.9 Chest pain, unspecified (principal); Z53.21 Procedure and treatment not carried out due to patient leaving prior to being seen by health care provider | CPT/HCPCS: 99281 ==

== ENCOUNTER 2023-11-28 19:09 | Emergency (ER) | payer MEDICAID ==
[~2023-11-28] VITALS: Ht 154.9 cm; Wt 54.5 kg
[2023-11-28 19:10] VITALS: BP 164/86; TEMP 97.5
[2023-11-28 19:35] LABS: BASOPHILS # (AUTO) 0.1 X10'3 (0-0.2); EOSINOPHILS % (AUTO) 0.6 % (0-6); HEMATOCRIT 39.2 % (35.0-45.0); HEMOGLOBIN 13.5 g/dl (12.0-16.0); LYMPHOCYTES # (AUTO) 2.6 X10'3 (1.1-4.8); LYMPHOCYTES % (AUTO) 38.4 % (21-51); MEAN CORPUSCULAR HEMOGLOBIN 34.8 PG (27.0-31.0); MEAN CORPUSCULAR HGB CONC 34.3 g/dL (33.0-36.5); MEAN CORPUSCULAR VOLUME 101.6 FL (78-98); MEAN PLATELET VOLUME 7.1 FL (7.4-10.4); MONOCYTES # (AUTO) 0.5 X10'3 (0-0.9); MONOCYTES % (AUTO) 7.7 % (2-12); NEUTROPHILS # (AUTO) 3.6 X10'3 (1.8-7.7); NEUTROPHILS % (AUTO) 52.3 % (42-75); PLATELET COUNT 380 X10'3 (140-440); RED BLOOD COUNT 3.86 X10'6 (4.20-5.60); RED CELL DISTRIBUTION WIDTH 15.1 % (11.5-14.5); WHITE BLOOD COUNT 6.8 X10'3 (4.5-11.0)
[2023-11-28 20:05] LABS: ALANINE AMINOTRANSFERASE 91 U/L (12-78); ALBUMIN 3.8 G/DL (3.4-5.0); ALKALINE PHOSPHATASE 112 IU/L (46-116); ANION GAP 18 (8-16); ASPARTATE AMINO TRANSFERASE 57 U/L (10-37); BILIRUBIN,TOTAL 0.2 MG/DL (0.1-1.0); BLOOD UREA NITROGEN 12 MG/DL (7-18); CALCIUM 8.8 MG/DL (8.5-10.1); CHLORIDE 100 MMOL/L (99-107); CREATININE 0.92 MG/DL (0.40-0.90); GLUCOSE 149 MG/DL (70-104); POTASSIUM 3.8 MMOL/L (3.5-5.1); SODIUM 145 MMOL/L (135-145); TOTAL CARBON DIOXIDE 27.1 MMOL/L (24-32); TOTAL PROTEIN 7.8 G/DL (6.4-8.2); eCRCL 53 ML/MIN; eGFR 64 ML/MIN
[2023-11-28 20:09] VITALS: PULSE 87; RESP 16; O2SAT 98
== END 2023-11-28 20:46 | disposition left against medical advice (07) ==
LOC: ER 19:10
DX: R07.89 Other chest pain (principal); Z53.21 Procedure and treatment not carried out due to patient leaving prior to being seen by health care provider
CPT/HCPCS: 36415; 71045; 80053; 84484; 85025; 93005; 99281

== ENCOUNTER 2023-11-29 19:15 | Emergency (ER) | payer MEDICAID ==
[~2023-11-29] VITALS: Ht 154.9 cm; Wt 57.5 kg
[2023-11-29 19:35] VITALS: BP 118/62; PULSE 103; RESP 18; TEMP 97.8; O2SAT 96
== END 2023-11-29 20:31 | disposition left against medical advice (07) ==
LOC: ER 19:15
DX: J02.9 Acute pharyngitis, unspecified (principal); R11.2 Nausea with vomiting, unspecified; R19.7 Diarrhea, unspecified; R07.89 Other chest pain; Z53.21 Procedure and treatment not carried out due to patient leaving prior to being seen by health care provider
CPT/HCPCS: 99281

== ENCOUNTER 2024-01-02 11:11 | Emergency (ER) | payer MEDICAID ==
[~2024-01-02] VITALS: Ht 154.9 cm; Wt 57.3 kg
[2024-01-02 11:11] VITALS: BP 110/82; PULSE 111; RESP 16; TEMP 97.7; O2SAT 95
== END 2024-01-02 11:59 | disposition left against medical advice (07) ==
LOC: ER 11:11
DX: R21 Rash and other nonspecific skin eruption (principal); Z53.21 Procedure and treatment not carried out due to patient leaving prior to being seen by health care provider

== ENCOUNTER 2024-01-27 20:45 | Emergency (ER) | payer MEDICAID ==
[~2024-01-27] VITALS: Ht 154.9 cm; Wt 65.9 kg
[2024-01-27 21:10] VITALS: BP 133/114; PULSE 105; TEMP 97.8; O2SAT 97
[2024-01-27 21:26] VITALS: RESP 18
== END 2024-01-27 21:43 | disposition left against medical advice (07) ==
LOC: ER 20:45
DX: R11.2 Nausea with vomiting, unspecified (principal); Z53.21 Procedure and treatment not carried out due to patient leaving prior to being seen by health care provider

== ENCOUNTER 2024-07-23 14:36 | Emergency (ER) | payer MEDICAID ==
[~2024-07-23] VITALS: Ht 154.9 cm; Wt 64.0 kg
[~2024-07-23 14:36] MED LIST changes: +FOLI1TAB27 PO; +HYDR-3965 PO; +LEVO-65 PO; -MULT-25 PO; +NICO-687 TD; +NO HOME MEDS; +THIA100T70 PO
[2024-07-23 14:40] VITALS: BP 121/76; PULSE 110; RESP 16; TEMP 98.4; O2SAT 96
[2024-07-23 15:10] LABS: EOSINOPHILS # (AUTO) 0.1 X10'3 (0-0.9); HEMOGLOBIN 11.4 g/dl (12.0-16.0); MEAN PLATELET VOLUME 7.3 FL (7.4-10.4); MONOCYTES # (AUTO) 0.6 X10'3 (0-0.9)
[2024-07-23 15:12] LABS: BASOPHILS # (AUTO) 0.2 X10'3 (0-0.2); BASOPHILS % (AUTO) 1.2 % (0-1); EOSINOPHILS % (AUTO) 0.9 % (0-6); HEMATOCRIT 34.7 % (35.0-45.0); LYMPHOCYTES # (AUTO) 2.9 X10'3 (1.1-4.8); LYMPHOCYTES % (AUTO) 21.7 % (21-51); MEAN CORPUSCULAR HEMOGLOBIN 33.8 PG (27.0-31.0); MEAN CORPUSCULAR HGB CONC 32.7 g/dL (33.0-36.5); MEAN CORPUSCULAR VOLUME 103.5 FL (78-98); MONOCYTES % (AUTO) 4.4 % (2-12); NEUTROPHILS # (AUTO) 9.6 X10'3 (1.8-7.7); NEUTROPHILS % (AUTO) 71.8 % (42-75); PLATELET COUNT 651 X10'3 (140-440); RED BLOOD COUNT 3.36 X10'6 (4.20-5.60); RED CELL DISTRIBUTION WIDTH 17.6 % (11.5-14.5); WHITE BLOOD COUNT 13.4 X10'3 (4.5-11.0)
[2024-07-23 15:21] LABS: ALANINE AMINOTRANSFERASE 31 U/L (12-78); ALBUMIN 2.8 G/DL (3.4-5.0); ALBUMIN/GLOBULIN RATIO 0.6 (1.1-1.5); ALKALINE PHOSPHATASE 84 IU/L (46-116); ANION GAP 7 (8-16); ASPARTATE AMINO TRANSFERASE 26 U/L (10-37); BILIRUBIN,TOTAL 0.1 MG/DL (0.1-1.0); BLOOD UREA NITROGEN 5 MG/DL (7-18); BUN/CREATININE RATIO 6.8 (10.0-20.0); CALCIUM 8.8 MG/DL (8.5-10.1); CHLORIDE 104 MMOL/L (99-107); CREATININE 0.73 MG/DL (0.40-0.90); GLUCOSE 79 MG/DL (70-104); LIPASE 61 U/L (16-77); SODIUM 145 MMOL/L (135-145); TOTAL CARBON DIOXIDE 34.2 MMOL/L (24-32); TOTAL PROTEIN 7.7 G/DL (6.4-8.2); eCRCL 67 ML/MIN; eGFR 83 ML/MIN
[2024-07-23 15:22] LABS: POTASSIUM 2.9 MMOL/L (3.5-5.1)
== END 2024-07-23 15:15 | disposition left against medical advice (07) ==
LOC: ER 14:37
DX: R07.89 Other chest pain (principal); R11.0 Nausea; Z53.21 Procedure and treatment not carried out due to patient leaving prior to being seen by health care provider
CPT/HCPCS: 80053; 83690; 85025; 93005

== ENCOUNTER 2024-07-25 17:57 | Emergency (ER) | payer MEDICAID ==
[~2024-07-25] VITALS: Ht 154.9 cm; Wt 54.5 kg
[2024-07-25 18:02] VITALS: BP 151/91; PULSE 98; TEMP 98.1; O2SAT 96
[2024-07-25 18:05] VITALS: RESP 14
[2024-07-25 18:29] LABS: BASOPHILS # (AUTO) 0.1 X10'3 (0-0.2); BASOPHILS % (AUTO) 1.1 % (0-1); EOSINOPHILS # (AUTO) 0.2 X10'3 (0-0.9); EOSINOPHILS % (AUTO) 1.7 % (0-6); HEMOGLOBIN 12.4 g/dl (12.0-16.0); LYMPHOCYTES # (AUTO) 3.2 X10'3 (1.1-4.8); LYMPHOCYTES % (AUTO) 34.8 % (21-51); MEAN CORPUSCULAR HEMOGLOBIN 35.1 PG (27.0-31.0); MEAN CORPUSCULAR HGB CONC 34.3 g/dL (33.0-36.5); MEAN CORPUSCULAR VOLUME 102.4 FL (78-98); MONOCYTES # (AUTO) 0.6 X10'3 (0-0.9); MONOCYTES % (AUTO) 6.5 % (2-12); NEUTROPHILS # (AUTO) 5.1 X10'3 (1.8-7.7); NEUTROPHILS % (AUTO) 55.9 % (42-75); PLATELET COUNT 428 X10'3 (140-440); RED BLOOD COUNT 3.52 X10'6 (4.20-5.60); RED CELL DISTRIBUTION WIDTH 17.5 % (11.5-14.5); WHITE BLOOD COUNT 9.1 X10'3 (4.5-11.0)
[2024-07-25 18:44] LABS: ALANINE AMINOTRANSFERASE 35 U/L (12-78); ALBUMIN 2.8 G/DL (3.4-5.0); ALBUMIN/GLOBULIN RATIO 0.6 (1.1-1.5); ALKALINE PHOSPHATASE 94 IU/L (46-116); ANION GAP 13 (8-16); ASPARTATE AMINO TRANSFERASE 41 U/L (10-37); BILIRUBIN,TOTAL 0.2 MG/DL (0.1-1.0); BLOOD UREA NITROGEN 4 MG/DL (7-18); BUN/CREATININE RATIO 6.9 (10.0-20.0); CALCIUM 8.9 MG/DL (8.5-10.1); CHLORIDE 103 MMOL/L (99-107); CREATININE 0.58 MG/DL (0.40-0.90); GLUCOSE 95 MG/DL (70-104); SODIUM 146 MMOL/L (135-145); TOTAL CARBON DIOXIDE 29.6 MMOL/L (24-32); TOTAL PROTEIN 7.7 G/DL (6.4-8.2); eCRCL 85 ML/MIN; eGFR > 90 ML/MIN
[2024-07-25 18:51] LABS: BILIRUBIN,URINE NEGATIVE (Neg); CLARITY,URINE CLEAR (Clear); COLOR,URINE YELLOW (Yellow); GLUCOSE, URINE NEGATIVE (Neg); KETONES,URINE NEGATIVE (Neg); LEUKOCYTE ESTERASE ,URINE NEGATIVE (Neg); NITRITES, URINE NEGATIVE (Neg); OCCULT BLOOD,URINE NEGATIVE (Neg); PROTEIN,URINE NEGATIVE (Neg); UROBILINOGEN,URINE 0.2 E.U/dL (0.2-1.0)
[2024-07-25 18:53] LABS: UA COLLECTION TYPE CLN CATCH MIDSTREAM
[2024-07-25] MEDS ORDERED: POTASSIUM CHLORIDE 20 MEQ/15 ML oral solution PO STA (18:57)
== END 2024-07-25 19:32 | disposition home or self-care (01) ==
LOC: ER 17:57
DX: E87.6 Hypokalemia (principal); F10.120 Alcohol abuse with intoxication, uncomplicated; F12.90 Cannabis use, unspecified, uncomplicated; Z98.890 Other specified postprocedural states; Z79.899 Other long term (current) drug therapy
CPT/HCPCS: 36415; 80053; 81003; 85025; 99283

== ENCOUNTER 2024-07-27 19:16 | Emergency (ER) | payer MEDICAID ==
[~2024-07-27] VITALS: Ht 154.9 cm; Wt 61.0 kg
[~2024-07-27 19:16] MED LIST changes: -LEVO-65 PO
[2024-07-27 19:24] VITALS: TEMP 98.7
[2024-07-27 19:45] VITALS: BP 105/61; PULSE 108; RESP 15; O2SAT 96
[2024-07-27 19:52] LABS: BILIRUBIN,URINE NEGATIVE (Neg); CLARITY,URINE CLEAR (Clear); COLOR,URINE YELLOW (Yellow); GLUCOSE, URINE NEGATIVE (Neg); KETONES,URINE NEGATIVE (Neg); LEUKOCYTE ESTERASE ,URINE NEGATIVE (Neg); NITRITES, URINE NEGATIVE (Neg); OCCULT BLOOD,URINE NEGATIVE (Neg); PH,URINE 6.5 (4.8-8.0); PROTEIN,URINE NEGATIVE (Neg); UROBILINOGEN,URINE 0.2 E.U/dL (0.2-1.0)
[2024-07-27 20:03] LABS: UA COLLECTION TYPE VOIDED
[2024-07-27 20:04] LABS: BASOPHILS # (AUTO) 0.2 X10'3 (0-0.2); BASOPHILS % (AUTO) 2.6 % (0-1); EOSINOPHILS # (AUTO) 0.1 X10'3 (0-0.9); EOSINOPHILS % (AUTO) 2.1 % (0-6); HEMATOCRIT 37.8 % (35.0-45.0); HEMOGLOBIN 12.5 g/dl (12.0-16.0); LYMPHOCYTES # (AUTO) 3.1 X10'3 (1.1-4.8); LYMPHOCYTES % (AUTO) 43.7 % (21-51); MEAN CORPUSCULAR HEMOGLOBIN 34.1 PG (27.0-31.0); MEAN CORPUSCULAR HGB CONC 33.1 g/dL (33.0-36.5); MEAN PLATELET VOLUME 7.5 FL (7.4-10.4); MONOCYTES # (AUTO) 0.5 X10'3 (0-0.9); MONOCYTES % (AUTO) 7.6 % (2-12); NEUTROPHILS # (AUTO) 3.1 X10'3 (1.8-7.7); PLATELET COUNT 405 X10'3 (140-440); RED BLOOD COUNT 3.67 X10'6 (4.20-5.60); RED CELL DISTRIBUTION WIDTH 18.3 % (11.5-14.5); WHITE BLOOD COUNT 7.1 X10'3 (4.5-11.0)
[2024-07-27] MEDS ORDERED: LORazepam 2 mg/ml vial IV ONE (20:10)
[2024-07-27] MEDS ORDERED: thiamine 100mg tablet PO ONE (20:10)
[2024-07-27] MEDS: normal saline 1000ml 1,000 ML IV ONE (20:18)
[2024-07-27 20:19] LABS: ALANINE AMINOTRANSFERASE 33 U/L (12-78); ALBUMIN 2.9 G/DL (3.4-5.0); ALBUMIN/GLOBULIN RATIO 0.6 (1.1-1.5); ALKALINE PHOSPHATASE 91 IU/L (46-116); ANION GAP 12 (8-16); ASPARTATE AMINO TRANSFERASE 32 U/L (10-37); BILIRUBIN,TOTAL 0.1 MG/DL (0.1-1.0); BLOOD UREA NITROGEN 9 MG/DL (7-18); BUN/CREATININE RATIO 11.7 (10.0-20.0); CALCIUM 9.2 MG/DL (8.5-10.1); CHLORIDE 106 MMOL/L (99-107); CREATININE 0.77 MG/DL (0.40-0.90); GLUCOSE 96 MG/DL (70-104); LIPASE 90 U/L (16-77); MAGNESIUM 2.2 MG/DL (1.5-2.4); POTASSIUM 3.3 MMOL/L (3.5-5.1); SODIUM 148 MMOL/L (135-145); TOTAL CARBON DIOXIDE 29.7 MMOL/L (24-32); TOTAL PROTEIN 7.8 G/DL (6.4-8.2); eCRCL 64 ML/MIN; eGFR 78 ML/MIN
[2024-07-27 20:23] LABS: TOTAL CELLS COUNTED 100
[2024-07-27 20:24] LABS: ANISOCYTOSIS 1+; PLATELET ESTIMATE NORMAL
[2024-07-27 20:27] LABS: ETHANOL 371 MG/DL (<10)
[2024-07-27 20:31] LABS: APTT 28 SECONDS (22-32)
== END 2024-07-27 20:36 | disposition left against medical advice (07) ==
LOC: ER 19:17
DX: F10.129 Alcohol abuse with intoxication, unspecified (principal); F12.90 Cannabis use, unspecified, uncomplicated; Z79.899 Other long term (current) drug therapy; Z98.890 Other specified postprocedural states
CPT/HCPCS: 36415; 80053; 80320; 81003; 83690; 83735; 85007; 85025; 85610; 85730; 96360; 99284; J7030

== ENCOUNTER 2024-08-02 14:52 | Emergency (ER) | payer MEDICAID ==
[~2024-08-02] VITALS: Ht 157.5 cm; Wt 65.3 kg
== END 2024-08-02 16:26 | disposition left against medical advice (07) ==
LOC: ER 14:53
DX: M25.519 Pain in unspecified shoulder (principal); Z53.21 Procedure and treatment not carried out due to patient leaving prior to being seen by health care provider

== ENCOUNTER 2025-03-14 23:43 | Emergency (ER) | payer MEDICAID ==
[~2025-03-14] VITALS: Ht 154.9 cm; Wt 60.3 kg
[~2025-03-14 23:43] MED LIST changes: -HYDR-3965 PO
[2025-03-14 23:46] VITALS: BP 123/74; PULSE 98; RESP 16; TEMP 98.5; O2SAT 96
== END 2025-03-15 00:54 | disposition left against medical advice (07) ==
LOC: ER 23:43
DX: M54.50 Low back pain, unspecified (principal); R51.9 Headache, unspecified; R07.81 Pleurodynia; Z53.21 Procedure and treatment not carried out due to patient leaving prior to being seen by health care provider

== ENCOUNTER 2025-03-15 07:28 | Emergency (ER) | payer MEDICAID ==
[~2025-03-15] VITALS: Ht 154.9 cm; Wt 60.4 kg
[2025-03-15 07:36] VITALS: BP 103/68; PULSE 90; TEMP 98.2; O2SAT 98
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
[2025-03-15] MEDS: ondansetron 4mg rapidly disintigrating tab PO ONE (08:23)
--- NOTE | 2025-03-15 08:29 | ELECTROCARDIOGRAPH REPORT ---
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
[2025-03-15 08:34] LABS: MEAN PLATELET VOLUME 7.4 FL (7.4-10.4); RED CELL DISTRIBUTION WIDTH 13.8 % (11.5-14.5)
--- NOTE | 2025-03-15 08:35 | RADIOLOGY REPORT ---
EXAM: CT CT CERVICAL SPINE INDICATION: trauma EXAM DATE: 03/15/2025 08:07 AM COMPARISON: None TECHNIQUE: Multiple axial CT images of the cervical spine were obtained using bone algorithm. Sagitta l and coronal reformatting was done. Bone and soft tissue windows were reviewed. Radiation Dose Information: CT Dose: CTDI volume is 18.7 mGy. Dose-length product is 417.5 mGy*cm FINDINGS: The cervical alignment is intact. Preservation of the cervical lordotic curvature. No acute cervical spine fracture is identified. The vertebral body heights are intact. No suspicious osseous lesions ar e identified. Multilevel intervertebral disc space narrowing. No significant spinal or neural foraminal stenosis. There is no prevertebral soft tissue swelling. IMPRESSION: 1. No evidence of acute cervical spine fracture or traumatic malalignment. 2. Multilevel cervical spondylosis. All CT scans at this medical facility are performed using dose modulation techniques as appropriate t o a performed exam including the following: Automated exposure control was utilized; adjustment of th e MA and/or KV according to patient size; and use of iterative reconstruction technique.
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
[2025-03-15 08:52] LABS: CREATININE 0.69 MG/DL (0.40-0.90); TOTAL CARBON DIOXIDE 30.9 MMOL/L (24-32); eCRCL 70 ML/MIN; eGFR 89 ML/MIN
[2025-03-15 08:54] VITALS: RESP 16
[2025-03-15 09:07] LABS: ETHANOL 341 MG/DL (<10)
== END 2025-03-15 08:55 | disposition home or self-care (01) ==
LOC: ER 07:28
DX: S06.0XAA Concussion with loss of consciousness status unknown, initial encounter (principal); S00.81XA Abrasion of other part of head, initial encounter; F10.129 Alcohol abuse with intoxication, unspecified; F12.90 Cannabis use, unspecified, uncomplicated; Z79.899 Other long term (current) drug therapy; Y90.9 Presence of alcohol in blood, level not specified; Y04.0XXA Assault by unarmed brawl or fight, initial encounter; Y93.89 Activity, other specified; Y92.89 Other specified places as the place of occurrence of the external cause; Y99.8 Other external cause status
CPT/HCPCS: 36415; 70450; 72125; 80053; 80320; 83690; 84484; 85025; 93005; 99284

== ENCOUNTER 2025-03-17 17:13 | Emergency (ER) | payer MEDICAID ==
[~2025-03-17] VITALS: Ht 162.6 cm; Wt 60.0 kg
[2025-03-17 17:15] VITALS: BP 136/89; PULSE 110; RESP 16; TEMP 98.2; O2SAT 99
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
[2025-03-17] MEDS ORDERED: ACET325T59 PO (20:27)
[2025-03-17] MEDS ORDERED: IBUP-1984 PO (20:27)
== END 2025-03-17 17:30 | disposition left against medical advice (07) ==
LOC: ER 17:13
DX: M25.551 Pain in right hip (principal); F12.90 Cannabis use, unspecified, uncomplicated; F10.90 Alcohol use, unspecified, uncomplicated; Y90.9 Presence of alcohol in blood, level not specified; Z79.899 Other long term (current) drug therapy
CPT/HCPCS: 99283

== ENCOUNTER 2025-03-17 18:37 | Emergency (ER) | payer MEDICAID ==
[~2025-03-17] VITALS: Ht 162.6 cm; Wt 52.7 kg
[2025-03-17 18:41] VITALS: BP 133/86; PULSE 98; TEMP 96.8; O2SAT 97
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
[2025-03-17 19:49] VITALS: RESP 15
[2025-03-17] MEDS: ketorolac trometh 15mg/ml vial 15 MG/ML ML IV ONE (19:49)
[2025-03-17] MEDS ORDERED: ACET325T59 PO (20:27)
[2025-03-17] MEDS ORDERED: IBUP-1984 PO (20:27)
== END 2025-03-17 20:29 | disposition home or self-care (01) ==
LOC: ER 18:39
DX: M54.50 Low back pain, unspecified (principal); F12.90 Cannabis use, unspecified, uncomplicated; F17.200 Nicotine dependence, unspecified, uncomplicated; F10.90 Alcohol use, unspecified, uncomplicated; Z79.899 Other long term (current) drug therapy; Y90.9 Presence of alcohol in blood, level not specified
CPT/HCPCS: 96374; 99283; J1885; J7512

== ENCOUNTER 2025-05-13 16:05 | Inpatient (IN) | payer MEDICAID ==
[~2025-05-13] VITALS: Ht 154.9 cm; Wt 58.4 kg
[2025-05-13 16:52] LABS: MEAN PLATELET VOLUME 7.2 FL (7.4-10.4); RED CELL DISTRIBUTION WIDTH 16.4 % (11.5-14.5)
[2025-05-13 17:06] LABS: CREATININE 0.82 MG/DL (0.40-0.90); ETHANOL 15 MG/DL (<10); TOTAL CARBON DIOXIDE 27.0 MMOL/L (24-32); eCRCL 59 ML/MIN; eGFR 73 ML/MIN
[2025-05-13] MEDS: normal saline 1000ml 1,000 ML IV ONE (18:43)
--- NOTE | 2025-05-13 18:54 | Physician Documentation ---
History of Present Illness ~ Chief Complaint: ETOH Withdrawl Stated Complaint: VOMITING Time Seen by MD: 18:05 Primary Medical Doctor: NONE Mode of Arrival: POV HPI This is a 54-year-old female who has a prolific alcoholic, drinks about a 5th a day, presents for evaluation of nausea, vomiting, abdominal pain for the last 48 hours. No obvious trigger provocation. Last drink was about 48 hours because she can not keep down her liquor. She does report shakes. She tells me that she wants to quit drinking, she isn't able to afford any liquor at this point. She can not recall last time she was sober. But did have alcohol withdrawal seizures in the past. Denies any chest pain or difficulty breathing. She smokes. Medication Reconciliation Allergies: Coded Allergies: No Known Allergies (Unverified , 05/13/25) Scheduled Folic Acid* (Folic Acid*), 1 TAB PO DAILY Nicotine 21 MG Patch* (Habitrol 21 MG Patch*), 1 PATCH TD TID Thiamine Mononitrate (Vitamin B-1), 1 TAB PO DAILY Miscellaneous Medications Home Med List (No Home Medications), (Reported) Past Medical History Past Medical History: Extremity Fracture Past Surgical History: Patient History: Patient reports no known family medical history. Alcohol Use: Alcoholic Drug Use: marijuana Lives In: Home Review of Systems ROS 10 point review of systems was performed and unless noted above in HPI is negative for acute process/complaint. Physical Exam Vital Signs: Temperature: 98.3, Source: Oral, Heart Rate: 97, Respiratory Rate: 14, BP: 150/81, Pulse Oximetry: 98, Weight: 58.400 Oxygen Flow Rate: 0 Physical Exam GENERAL: Awake, alert, oriented, GCS 15, no apparent distress, non-toxic appearing, answers questions, follows commands appropriately. Examined in bed 4., accompanied by male oceanography teacher HEENT: Atraumatic, normocephalic, pupils equal, extraocular muscles intact, sclerae anicteric, mucus membranes moist, oropharynx is clear, no stridor. NECK: supple, full active range of motion, trachea midline, no thyromegaly, no lymphadenopathy, no JVD. CARDIOVASCULAR: Tachycardic and regular rate/rhythm, no murmurs/gallops/rubs, Pulses are 2+ in all extremities and symmetric. Capillary refill less than 2 seconds. PULMONARY: Nonlabored, good air movement ,no respiratory distress, speaking in full sentences, clear to auscultation bilaterally, no wheezing, no ronchi, no rales, no accessory muscle use. GASTROINTESTINAL: Soft, non-tender, non-distended, normal active bowel sounds, no organomegaly, no pulsatile masses, no CVA tenderness. NEUROLOGIC: Tongue fasciculations noted. Bilateral upper extremity tremor noted. Lucid with normal mental status. Normal facial symmetry. Moves all extremities symmetrically and with purpose. No truncal ataxia. Speech is fluid without evidence of dysarthria or aphasia, no focal deficits appreciated. MUSCULOSKELETAL: There is full range of motion of all extremities. There is no joint pain or joint swelling or joint erythema. There is no muscle pain or tenderness or swelling. EXTREMITIES: warm, well-perfused, no cyanosis, no clubbing, no edema, no acute deformities. Skin: warm, dry, no rashes or lesions, no jaundice, no petechiae orpurpura. No ecchymosis. PSYCHIATRIC: Normal affect, normal insight, normal concentration. Focused exam: [] Progress Results/Orders Results/Orders Orders - NAV DUNHAM DO Drug Screen, Urine (05/13/25 18:09) Mixed Venous (05/13/25 ) * Miscellaneous Nursing Orders (05/13/25 18:50) Completed Orders - NAV DUNHAM DO Prochlorperazine Inj (Compazine Inj) (05/13/25 18:10) Normal Saline 1000ml (0.9% Sodium Chlori (05/13/25 18:25) Phenobarbital Inj (Phenobarbital Inj.) (05/13/25 18:25) Medications Received in ER Medications (Trade) Dose Ordered Sig/Caro Route PRN Reason Start Time Stop Time Status Last Admin Dose Admin (Compazine inj) 10 mg ONCE ONCE IV 05/13/25 18:10 05/13/25 18:15 DC 05/13/25 18:28 10 MG Sodium Chloride 1,000 ml @ 1,000 mls/hr ONCE ONCE IV 05/13/25 18:25 05/13/25 19:24 DC 05/13/25 18:43 1,000 MLS/HR Phenobarbital Sodium 260 mg/ Sodium Chloride 100 ml @ 200 mls/hr ONCE STAT IV 05/13/25 18:25 05/13/25 18:54 DC 05/13/25 18:57 200 MLS/HR Vital Signs 05/13/25 05/13/25 05/13/25 05/13/25 16:21 18:05 18:05 18:45 Temp 98.3 Pulse 119 97 Resp 30 16 17 14 B/P (MAP) 174/96 150/81 (104) Pulse Ox 98 98 O2 Flow Rate 0 0 05/13/25 05/13/25 19:29 21:11 Pulse 81 98 Resp 16 16 B/P (MAP) 155/80 (105) 156/69 (98) Pulse Ox 98 100 O2 Flow Rate 0 0 Laboratory Tests Test 05/13/25 16:44 05/13/25 19:38 White Blood Count 5.8 Red Blood Count 4.12 L Hemoglobin 14.0 Hematocrit 40.7 Mean Corpuscular Volume 98.8 H Mean Corpuscular Hemoglobin 34.1 H Mean Corpuscular Hemoglobin Concent 34.5 Red Cell Distribution Width 16.4 H Platelet Count 281 Mean Platelet Volume 7.2 L Neutrophils (%) (Auto) 73.2 Lymphocytes (%) (Auto) 20.0 L Monocytes (%) (Auto) 4.9 Eosinophils (%) (Auto) 0.5 Basophils (%) (Auto) 1.4 H Neutrophils # (Auto) 4.3 Lymphocytes # (Auto) 1.2 Monocytes # (Auto) 0.3 Eosinophils # (Auto) 0.0 Basophils # (Auto) 0.1 CBC Comment Sodium Level 143 Potassium Level 3.1 L Chloride Level 100 Carbon Dioxide Level 27.0 Anion Gap 16 Blood Urea Nitrogen 8 Creatinine 0.82 Estimated GFR/1.73 m2 73 BUN/Creatinine Ratio 9.8 L Glucose Level 116 H Calcium Level 9.2 Magnesium Level 1.6 Albumin 4.0 Amylase Level 60 Lipase 69 Chemistry Comments Ethyl Alcohol Level 15 H Venous Blood pH 7.457 H Medical Decision Making Findings Facility Status: ED Holds, [facility] process The plan was discussed with the patient, who demonstrates clear understanding of the plan and is in agreement with the plan unless otherwise noted in the chart. All questions have been answered, all concerns were addressed unless otherwise documented. I was available throughout their ED stay for frequent reassessment and questions. Differential Diagnoses (considered and possible or likely): [Alcohol intoxication, alcohol withdrawal, viral gastroenteritis, alcoholic ketoacidosis, preformed toxin ingestion, unlikely to be small-bowel obstruction or any other surgical process.] ??Differential Diagnoses (considered and unlikely, not requiring evaluation currently): [See above any] MDM Data Please see HPI for the following: Independent Historians and external Records Review. Historian: [Patient] Independent Historians: ?[Record review] Medication Management: [Reviewed medication list] Social History and determinants: [Reviewed] Please see the body of the note for the following: Any independent interpretations of ECG, imaging studies. All vitals signs/haemodynamics, ordered tests were independently reviewed and interpreted by myself. Nursing triage complaint and vitals reviewed, additional nursing notes were reviewed as available and I agree unless otherwise noted or documented in contradiction in the chart Vital Signs: Independently reviewed Labs: Independently interpreted Imaging: Independently interpreted Old Medical Records: Independently reviewed, see HPI for relevant summary and information Pulse Oximetry: [97%] interpreted as [normal on room air] by me [Computer Designer: Tachycardic Rate, Regular rhythm, no ectopy, sinus tachycardia. reviewed and interpreted by me] Additionally notably showing: [Hemodynamics reviewed. The patient is tachycardic on presentation, improved with the management. She is hypotensive. She is not febrile. There was no evidence of respiratory distress. CBC is normal without leukocytosis, normal hemoglobin, normal platelets. No neutrophilic predominance. Chemistry shows mild hypokalemia. Magnesium is normal. Renal function is normal. Lipase is normal. Ethanol is still detectable.] Tests considered but not ordered include: [Imaging has been considerably does not appear to be necessary] Social Determinants of Health Impact: Patient was evaluated in [facility] [place] to healthcare due to below par ratio of patient to medical providers. [] Comorbid Conditions Impacting Present Evaluation and Care/Treatment: [Alcoholism ] Management Discussions with other Healthcare Providers: [Hospitalist regarding admission] Treatment and Disposition Medication Management (Given or considered): [Alcohol withdrawal management]. See EMR for details Consideration for Hospitalization/Escalation/Deescalation of Care: Admission for observation has been considered, and appears to be necessary for further management of her alcohol withdrawal. ?ED Course:?[While I have some doubts regarding veracity of her statement that she intends to quit drinking, at this point the patient is an alcohol withdrawal, requires medical management of can not be provided in the outpatient setting. She needs to be admitted.] ?Shared decision making:?[] Code status:?FULL Please see the full Electronic Medical Record for full details of nursing documentation, medications list, other records of complete past medical history and conditions, vital signs, laboratory studies, and any radiologic study interpretations by radiologists. Portions of this note were completed using [employer] dictation software and as a result there may exist minor errors in spelling. I have reviewed elements of past family and social history and agree as included in note. Departure Disposition: 09 ADMITTED INPATIENT Impression: Primary Impression: Alcohol withdrawal syndrome Additional Impressions: Hypokalemia Alcoholism Condition: Improved Referrals: NO PRIMARY CARE PROVIDER (PCP) Signature Scribe Signature: No scribe Attestation: Date: May 13, 2025 Time: 18:55 This note accurately reflects clinical decisions, work performed by myself, Nav Dunham, NAV PATE DO May 13, 2025 18:54
[2025-05-13] MEDS ORDERED: ondansetron/PF 4mg/2ml inj IV PRN ×2 (21:25→22:35)
[2025-05-13] MEDS ORDERED: mag hydrox/Alum hydrox/simeth 30ml oral suspension PO PRN (21:25)
[2025-05-13] MEDS ORDERED: magnesium sulf-water 4G/100mL 100 ML IV PRN (21:25)
[2025-05-13] MEDS ORDERED: potassium Cl 20 mEq SR tablet PO PRN (21:25)
[2025-05-13] MEDS ORDERED: magnesium sulf-water 2g/50mL 50 ML IV PRN (21:25)
[2025-05-13] MEDS ORDERED: magnesium Cl slow-release 64mg tablet PO PRN (21:25)
[2025-05-13] MEDS ORDERED: HYDROcodone/acetaminophen 10/325mg tab PO PRN (21:25)
[2025-05-13] MEDS ORDERED: HYDROcodone/acetaminophen 5mg/325mg tablet PO PRN (21:25)
[2025-05-13] MEDS ORDERED: magnesium hydroxide 30ml (MOM) UD suspension PO PRN (21:25)
[2025-05-13] MEDS ORDERED: potassium Cl 40MEQ/1/2NS 520ml 520 ML IV PRN (21:25)
[2025-05-13 21:54] LABS: LEUKOCYTE ESTERASE ,URINE NEGATIVE (Neg); NITRITES, URINE NEGATIVE (Neg); OCCULT BLOOD,URINE NEGATIVE (Neg)
[2025-05-13 21:55] LABS: URINE AMPHETAMINE SCREEN NEGATIVE (Neg); URINE BARBITUATE SCREEN POSITIVE (Neg); URINE BENZODIAZEPINES SCREEN NEGATIVE (Neg); URINE CANNABINOID SCREEN NEGATIVE (Neg); URINE COCAINE SCREEN NEGATIVE (Neg); URINE METHADONE SCREEN NEGATIVE (Neg); URINE OPIATE SCREEN NEGATIVE (Neg); URINE PHENCYCLIDINE SCREEN NEGATIVE (Neg)
[2025-05-13 21:56] LABS: UA COLLECTION TYPE VOIDED
--- NOTE | 2025-05-13 22:04 | HISTORY AND PHYSICAL-Residence ---
History & Physical Providers to CC Resident Creating Document: STEVEN SANCHEZ RES ~ History of Present Illness Primary Medical Doctor: NONE Reason for Admit\Complaint: Severe Alcohol withdrawal symptoms History of Present Illness This is a 54-year-old female with no significant past medical history came to the ER with complaints of vomiting and shakiness since today morning. According to her, she consumes 1 L of vodka and 10 beers every day since many months. She stopped drinking 48 hours ago and she could not afford alcohol. Since today morning she has been experiencing tremors in her hand, even at rest with nausea and vomiting. She has 10-12 episodes of vomiting per day associated with chest pain, not able to keep down any fluids, vomiting is not bile stained or blood- tinged. She also complains of abdominal pain in the umbilical and epigastric region, 7/10, dull aching, nonradiating, not associated with food intake, no diarrhea/constipation, no yellowish discoloration of the skin/sclera, no abdominal distention. She complains of 1 episode palpitation today afternoon at rest, she feels it was regular beats, lasted for 10 minutes. Not associated with chest pain, diaphoresis, lightheadedness, leg swelling. No complaints of visual or tactile disturbances, hallucinations, peripheral neuropathy, seizure-like activity. The last time she experiences symptoms were many months ago. The patient is oriented to the place and she knows what year it is. But she does not know the month, date, day. She was brought in by her boyfriend. Allergies: Coded Allergies: No Known Allergies (Unverified , 05/13/25) Home Medications Home Medications Active Folic Acid* (Folic Acid) Y Tab 1 Tab PO DAILY 30 Days Vitamin B-1 (Thiamine Mononitrate) 100 Mg Tablet 1 Tab PO DAILY 30 Days Habitrol 21 MG Patch* (Nicotine) 1 Each Patch.td24 1 Patch TD TID 30 Days Reported No Home Medications (Home Med List) Each Past Medical History Past Medical History Nothing significant Past Surgical History Surgical History Comment Nothing significant Family History Family History: Patient reports no known family medical history. Past Social History Smoking: Cigarettes (Half a pack a day) Alcohol Use: Abuse (1 L of vodka and 10 beers a day) Drug Use: Marijuana Lives with: Other (Boyfriend) Lives In: Home Occupation: unemployed Domestic Violence: Neg ROS Constitutional: Reports: weakness Eyes: Reports: no symptoms reported ENT: Reports: no symptoms reported Respiratory: Reports: no symptoms reported Cardiovascular: Reports: palpitations Gastrointestinal: Reports: abdominal pain, nausea, vomiting Genitourinary: Reports: no symptoms reported Female Genitalia: Reports: no reported symptoms Neurological: Reports: no symptoms reported Musculoskeletal: Reports: no symptoms reported Integumentary: Reports: no symptoms reported Allergic/Immunologic: Reports: no symptoms reported Hematologic/Lymphatic: Reports: no symptoms reported Endocrine: Reports: no symptoms reported Psychiatric: Reports: no symptoms reported Exam Vitals: Vital Signs Date Time Temp Pulse Resp B/P (MAP) Pulse Ox O2 Delivery O2 Flow Rate FiO2 05/13/25 21:11 98 16 156/69 (98) 100 0 05/13/25 16:21 98.3 General: General: Patient looks disheveled oriented to place and ER but does not know month, date or day , not agitated, not in acute distress, well cooperated during the physical. HEENT: Conjunctive are pink, sclerae clear, no icterus, pupil is equal in both sides, reactive to light, no ear discharge, no pharyngeal erythema or an edema. Neck: Supple, no JVD, no lymphadenopathy and thyromegaly. Chest: Equal air entry on both lungs, no added sounds, no wheeze. Cardiovascular: S1-S2 regular sinus rhythm and, regular rate, no gallops, no rubs, no murmurs Abdomen: No visible peristalsis, Bowel sounds present on auscultation, soft, nontender, no guarding, no rigidity Extremities: No obvious deformities, no pitting edema bilaterally, capillary refill intact, peripheral pulsations are intact on both sides. Tremors in bilateral hands even at rest. Central Nervous System: No focal neurological deficits, no motor or sensory weakness in all 4 extremities, could move all 4 extremities, 2+ deep tendon reflexes, negative Babinski. Musculoskeletal: No joint swelling, deformities, inflammations, and no scoliosis and back tenderness Skin: Warm and dry. Diagnostic Data Last Recorded Lab Results: 05/13/25 1644 05/13/25 1644 Counseling Services Smoking & Tobacco Cessation: > 10 Minutes Advance Care Planning Advanced Care plannin - 30 Minutes (Full code) Additional Plan Assessment: This is a 54-year-old female with no significant past medical history came to the ER with complaints of vomiting and shakiness since today morning. Patient in severe alcohol withdrawal, her last drink was 48 hours ago. Plan: Severe alcohol withdrawal with vomiting CIWA score 25 No history of seizures/hallucination Vitals: Pulse rate in 90s, blood pressure 160/70 Blood gas pH 7.45, ethyl alcohol level 15. Lipase 69, creatinine 0.82, BUN 8 Plan: Ordered liver function test Ordered Zofran 4 mg q.6 H p.r.n. with Compazine 10 mg p.r.n. Hydration with 100 mL/hour normal saline On severe alcohol withdrawal protocol Ordered substance use navigator and foster care social worker Encouraged to quit drinking alcohol and suggested alcohol anonymous group. Hypokalemia Most likely due to vomiting Potassium levels of 3.1 On hyperkalemia/hypokalemia protocol Code status: Full code DVT prophylaxis: SCDs Analgesia/sedation: Morphine/[place] p.r.n. Line/tube: PIV GI prophylaxis: Protonix 40 mg IV daily Nutrition: Regular diet PT: Ordered. Prognosis: Guarded Disposition: Admit to ortho, on telemetry Steven Sanchez MD PGY1, Internal Medicine [facility] Date of Service: May 13, 2025 Billing Provider: MADALYN ROGEL MD Common Visit Codes: [id number] INP/OBS CARE (HIGH) Assessment/Plan Assessment Evaluated the patient with the residents. Discussed the case with them. Reviewed the notes by the resident. Agree with their assessments and plans. I also reviewed the patient's records in which included labs radiology and notes from other providers. No additional points at this time. STEVEN SANCHEZ, RES May 13, 2025 22:04 MADALYN ROGEL MD May 14, 2025 04:27
[2025-05-13 22:06] LABS: SQUAMOUS EPITHELIAL CELL,UR MODERATE /LPF (FEW)
[2025-05-13 22:45] VITALS: BP 145/116; PULSE 95; RESP 17; TEMP 98.3; O2SAT 99
[2025-05-13] MEDS ORDERED: diazepam inj 5 MG/ML inj. IV PRN (22:50)
[2025-05-13] MEDS: normal saline 1000ml 1,000 ML IV SCH (22:54)
[2025-05-13 23:56] LABS: INR 1.1 INR
[2025-05-14 00:04] LABS: CHOL/HDL RATIO 2.5 (0.00-4.99); LDL CHOLESTEROL 133 MG/DL (50-100)
[2025-05-14 06:10] LABS: MEAN PLATELET VOLUME 7.6 FL (7.4-10.4); RED CELL DISTRIBUTION WIDTH 16.9 % (11.5-14.5)
[2025-05-14 06:46] LABS: CREATININE 0.46 MG/DL (0.40-0.90); TOTAL CARBON DIOXIDE 30.1 MMOL/L (24-32); eCRCL 106 ML/MIN; eGFR > 90 ML/MIN
[2025-05-14] MEDS: K and/or MAG REPLACEMENT MC SCH (07:26)
[2025-05-14] MEDS: diazepam inj 5 MG/ML inj. IV PRN (07:32)
[2025-05-14] MEDS: docusate sod 100mg capsule PO SCH (07:36)
[2025-05-14] MEDS: thiamine 100mg/ml 2ml inj. IV SCH (07:36)
[2025-05-14] MEDS: potassium Cl 20 mEq SR tablet PO PRN (07:37)
[2025-05-14] MEDS: folic acid 1mg/0.2ml inj IV SCH (07:37)
[2025-05-14 08:00] VITALS: RESP 16; O2SAT 98
[2025-05-14 10:00] VITALS: BP 150/85; PULSE 82; RESP 16; TEMP 98.3; O2SAT 96
--- NOTE | 2025-05-14 10:28 | PROGRESS NOTE- Residence ---
Progress Note - Resident Providers to CC Resident Creating Document: VIDHI GAVIN RES CC: DISHA APONTE MD ~ Central Line/PICC still needed: N\A Antibiotic Timeout Antibiotic Ordered?: No MRSA Education MRSA Education Provided to pt: No Subjective Patient is seen this morning. Son is with her with the bedside. She stated she has been drinking lot of alcohol these days. History of alcohol abuse and remotely she had history of inpatient rehab and was sober for few months. She denies any other drug use except for smoking. She lives with her friend. And has not seen a PCP in many many years Currently she stated she is feeling crap. c/o nausea, tremors, and fatigue. denied previous h/o liver disease Objective Vital Signs Date Time Temp Pulse Resp B/P (MAP) Pulse Ox O2 Delivery O2 Flow Rate FiO2 05/14/25 07:36 90 05/14/25 07:32 18 05/14/25 00:21 Room Air 05/13/25 22:45 98.3 145/116 (126) 99 05/13/25 21:11 0 Result Diagram: 05/14/25 0529 05/14/25528 General: Elderly female, thin, AAOx 4, malnourished, not in apparent distress Head: Normocephalic with an atraumatic Eyes: Pupils- 3mm, reacting to light, conjunctiva- anicteric Nose and throat: No polyps, septum- normal, no mucosal ulcers Neck: Supple, no lymphadenopathy, no carotid bruit Respiratory: No use of accessory muscles of respiration, Bilateral normal vesiscular breath sounds heard. No wheeze, rhochi or creps Cardiac: S1-S2 heard, rythm regular, no gallop/murmur Abdomen: non distended, no tenderness, no organomegaly, bowel sounds- heard Extremities: no clubbing, no pedal edema, no deformities, peripheral pulses- 2+ Skin: warm and dry, no rash, no purpura Neuro: tremors present- both hands, no nystagmus, No focal deficit, gross cranial nerve exam- normal Coagulation Studies Laboratory Tests Test 05/13/25 23:14 Prothrombin Time 10.8 SECONDS (9.0-12.0) INR International Normalized Ratio 1.1 INR Coagulation Comments Counseling Services Smoking & Tobacco Cessation: 3-10 Minutes Assessment Assessment 54-year-old female with alcohol abuse, nicotine abuse presented to the ER with chief complaints of vomitings, tremors after she stopped drinking alcohol Plan Plan Alcohol abuse Severe alcohol withdrawal -history of drinking of 1 L of vodka on 10 beers a day. Last drink was 24-48 hours ago -mental status improved compared to yesterday today she is AAO x4, RASS-0 -tremors are getting better -continue severe alcohol withdrawal protocol- with IV diazepam 5 mg q.1h p.r.n. -continue thiamine and folate -monitor for delirium, and seizures -patient is counseled regarding alcohol abuse, substance abuse navigator/social media specialist consulted Possible alcohol gastritis -presented with vomitings, no hematemesis,, no abdominal pain, lipase is normal -continue on ondansetron 4 mg IV q.6 p.r.n. for nausea/vomitings -regular diet as tolerated -we will start on IV famotidine 20 mg once daily -if vomitings become persistent or not resolving then we will consult GI for EGD Hypokalemia -potassium three -suspect likely secondary to decreased food intake/alcohol-induced -potassium replacement per protocol Elevated transaminases -Bilirubin-1, AST 83, ALT 108, ALP 126 -R factor- mixed injury -follow up on hepatitis B and C serologies -follow up on ultrasound abdomen to look for liver echotexture -monitor LFTs Nicotine abuse -smoking cessation counseling given -started on nicotine patch 14 mg once daily Code Status: Full code Line/tube: PIV DVT prophylaxis: lovenox Nutrition: regular diet PT: yes Prognosis: Guarded Disposition: Continue care in ortho floor Vidhi Gavin MD IM PGY-3 resident Date of Service: May 14, 2025 Billing Provider: DISHA APONTE MD Common Visit Codes: [id number] INP/OBS CARE(HIGH) VIDHI GAVIN, RES May 14, 2025 10:28 DISHA APONTE MD May 16, 2025 14:25
[2025-05-14] MEDS ORDERED: famotidine/PF IV inj 20 MG in normal saline 100ml IV soln 100 ML IV SCH (10:40)
[2025-05-14] MEDS: nicotine 14mg patch - 24hr TD SCH (11:58)
--- NOTE | 2025-05-14 14:42 | RADIOLOGY REPORT ---
ULTRASOUND ABDOMEN, LIMITED RIGHT UPPER QUADRANT: REASON FOR EXAM: Abnormal liver function tests TECHNIQUE: Real-time sector scans in the transverse and longitudinal planes were obtained through the right upper quadrant of the abdomen. FINDINGS: The liver is of normal size and contour. The liver is diffusely echogenic. There is hepatopetal flow in the portal vein. There is no intrahepatic nor extrahepatic biliary ductal dilatation. The common bile duct measures 2 mm. No gallstones or sludge are identified. There is no gallbladder wall thickening nor pericholecystic fluid. There is no sonographic Canela's sign. The visualized portion of the pancreas is unremarkable. The right kidney measures 8.8 cm. No hydronephrosis or nephrolithiasis is identified. There is no evidence of right renal mass or cyst. The visualized portions of the abdominal aorta demonstrate no evidence of aneurysmal dilatation. The visualized inferior vena cava is unremarkable. There is no free fluid identified in the right upper quadrant. IMPRESSION: The liver is diffusely echogenic which may be secondary to steatosis or another diffuse hepatic process. Correlate clinically and with liver function tests. No gallstone identified.
[2025-05-14] MEDS: famotidine/PF 10 mg/ml inj IV SCH (14:49)
[2025-05-14 18:00] VITALS: BP 159/83; PULSE 84; RESP 14; TEMP 98.7; O2SAT 100
[2025-05-14 20:00] VITALS: RESP 14; O2SAT 100
[2025-05-14] MEDS: enoxaparin 40mg/0.4ml syringe SUBCUT SCH (20:00)
[2025-05-14 22:00] VITALS: BP 161/93; PULSE 90; RESP 18; TEMP 98.5; O2SAT 99
[2025-05-15 06:00] VITALS: BP 146/90; PULSE 77; RESP 16; TEMP 98; O2SAT 99
[2025-05-15 07:42] LABS: MEAN PLATELET VOLUME 8.3 FL (7.4-10.4); RED CELL DISTRIBUTION WIDTH 16.3 % (11.5-14.5)
[2025-05-15 08:00] VITALS: RESP 16; O2SAT 100
[2025-05-15 08:42] LABS: CREATININE 0.54 MG/DL (0.40-0.90); TOTAL CARBON DIOXIDE 30.9 MMOL/L (24-32); eCRCL 90 ML/MIN; eGFR > 90 ML/MIN
[2025-05-15 10:00] VITALS: BP 130/78; PULSE 90; RESP 16; TEMP 98.1; O2SAT 99
--- NOTE | 2025-05-15 11:02 | DISCHARGE SUMMARY-Residence ---
Discharge Summary Providers to CC Resident Creating Document: RAYMOND DELGADO RES ~ Discharge Summary Admission Diagnosis: ALCOHOL WITHDRAWAL Hospital Course DATE OF ADMISSION: 05/13/2025 DATE OF DISCHARGE: 05/15/2025 Abdomen US: The liver is diffusely echogenic which may be secondary to steatosis or another diffuse hepatic process. Correlate clinically and with liver function tests. No gallstone identified. Laboratory Tests Test 05/13/25 16:44 05/13/25 19:38 05/13/25 21:15 05/13/25 23:14 White Blood Count 5.8 X10'3 Red Blood Count 4.12 X10'6 Hemoglobin 14.0 g/dl Hematocrit 40.7 % Mean Corpuscular Volume 98.8 FL Mean Corpuscular Hemoglobin 34.1 PG Mean Corpuscular Hemoglobin Concent 34.5 g/dL Red Cell Distribution Width 16.4 % Platelet Count 281 X10'3 Mean Platelet Volume 7.2 FL Neutrophils (%) (Auto) 73.2 % Lymphocytes (%) (Auto) 20.0 % Monocytes (%) (Auto) 4.9 % Eosinophils (%) (Auto) 0.5 % Basophils (%) (Auto) 1.4 % Neutrophils # (Auto) 4.3 X10'3 Lymphocytes # (Auto) 1.2 X10'3 Monocytes # (Auto) 0.3 X10'3 Eosinophils # (Auto) 0.0 X10'3 Basophils # (Auto) 0.1 X10'3 CBC Comment Sodium Level 143 MMOL/L Potassium Level 3.1 MMOL/L Chloride Level 100 MMOL/L Carbon Dioxide Level 27.0 MMOL/L Anion Gap 16 Blood Urea Nitrogen 8 MG/DL Creatinine 0.82 MG/DL Estimated GFR/1.73 m2 73 ML/MIN BUN/Creatinine Ratio 9.8 Glucose Level 116 MG/DL Calcium Level 9.2 MG/DL Magnesium Level 1.6 MG/DL Albumin 4.0 G/DL 3.2 G/DL Amylase Level 60 U/L Lipase 69 U/L Chemistry Comments Ethyl Alcohol Level 15 MG/DL Venous Blood pH 7.457 Urine Specimen Description Voided Urine Color Yellow Urine Clarity Clear Urine pH 7.5 Urine Specific [place] 1.015 Urine Protein Trace mg/dl Urine Glucose (UA) Negative mg/dl Urine Ketones 15 mg/dl Urine Occult Blood Negative Urine Nitrite Negative Urine Bilirubin Negative Urine Urobilinogen 1.0 E.U/dL Urine Leukocyte Esterase Negative Urine RBC 0-2 /HPF Urine WBC 5-10 /HPF Urine Squamous Epithelial Cells Moderate /LPF Urine Bacteria 2+ /HPF Urine Culture Indicated Indicated Volume Urine Centrifuged 10 ml Urine Comment Urine Opiates Screen Negative Urine Methadone Screen Negative Urine Fentanyl Screen Negative Urine Barbiturates Screen Positive Urine Phencyclidine Screen Negative Urine Amphetamines Screen Negative Urine Benzodiazepines Screen Negative Urine Cocaine Screen Negative Urine Cannabinoids Screen Negative Drug Screen Comment Prothrombin Time 10.8 SECONDS INR International Normalized Ratio 1.1 INR Coagulation Comments Hemoglobin A1c 5.0 % Total Bilirubin 0.9 MG/DL Direct Bilirubin 0.2 MG/DL Aspartate Amino Transf (AST/SGOT) 99 U/L Alanine Aminotransferase (ALT/SGPT) 123 U/L Alkaline Phosphatase 133 IU/L Total Protein 6.5 G/DL Globulin 3.3 G/DL Albumin/Globulin Ratio 1.0 Triglycerides Level 42 MG/DL Cholesterol Level 259 MG/DL LDL Cholesterol 133 MG/DL HDL Cholesterol 102 MG/DL Cholesterol/HDL Ratio 2.5 Test 05/14/25 05:29 05/15/25 06:40 White Blood Count 4.0 X10'3 3.7 X10'3 Red Blood Count 3.65 X10'6 3.78 X10'6 Hemoglobin 12.5 g/dl 12.7 g/dl Hematocrit 36.6 % 38.1 % Mean Corpuscular Volume 100.2 FL 100.9 FL Mean Corpuscular Hemoglobin 34.1 PG 33.8 PG Mean Corpuscular Hemoglobin Concent 34.0 g/dL 33.4 g/dL Red Cell Distribution Width 16.9 % 16.3 % Platelet Count 204 X10'3 160 X10'3 Mean Platelet Volume 7.6 FL 8.3 FL Neutrophils (%) (Auto) 55.3 % 58.5 % Lymphocytes (%) (Auto) 34.6 % 30.9 % Monocytes (%) (Auto) 7.0 % 7.0 % Eosinophils (%) (Auto) 1.9 % 2.9 % Basophils (%) (Auto) 1.2 % 0.7 % Neutrophils # (Auto) 2.2 X10'3 2.2 X10'3 Lymphocytes # (Auto) 1.4 X10'3 1.2 X10'3 Monocytes # (Auto) 0.3 X10'3 0.3 X10'3 Eosinophils # (Auto) 0.1 X10'3 0.1 X10'3 Basophils # (Auto) 0.0 X10'3 0.0 X10'3 CBC Comment Sodium Level 141 MMOL/L 140 MMOL/L Potassium Level 3.0 MMOL/L 4.2 MMOL/L Chloride Level 98 MMOL/L 102 MMOL/L Carbon Dioxide Level 30.1 MMOL/L 30.9 MMOL/L Anion Gap 13 7 Blood Urea Nitrogen 9 MG/DL 8 MG/DL Creatinine 0.46 MG/DL 0.54 MG/DL Estimated GFR/1.73 m2 > 90 ML/MIN > 90 ML/MIN BUN/Creatinine Ratio 19.6 14.8 Glucose Level 68 MG/DL 109 MG/DL Calcium Level 8.5 MG/DL 9.1 MG/DL Magnesium Level 1.7 MG/DL 1.6 MG/DL Total Bilirubin 1.0 MG/DL 0.7 MG/DL Aspartate Amino Transf (AST/SGOT) 83 U/L 53 U/L Alanine Aminotransferase (ALT/SGPT) 108 U/L 89 U/L Alkaline Phosphatase 126 IU/L 120 IU/L Total Protein 6.1 G/DL 6.6 G/DL Albumin 3.1 G/DL 3.3 G/DL Globulin 3.0 G/DL 3.3 G/DL Albumin/Globulin Ratio 1.0 1.0 Chemistry Comments Discharge Diagnosis\Comment: Alcohol abuse Severe alcohol withdrawal Possible alcohol gastritis Hypokalemia Elevated transaminases secondary to alcohol use Nicotine abuse Operations\Procedures: none Consultants: none Complications: none Condition on DC: Stable Discharge Summary: History of present illness This is a 54-year-old female with no significant past medical history came to the ER with complaints of vomiting and shakiness since today morning. According to her, she consumes 1 L of vodka and 10 beers every day since many months. She stopped drinking 48 hours ago and she could not afford alcohol. Since today morning she has been experiencing tremors in her hand, even at rest with nausea and vomiting. She has 10-12 episodes of vomiting per day associated with chest pain, not able to keep down any fluids, vomiting is not bile stained or blood- tinged. She also complains of abdominal pain in the umbilical and epigastric region, 7/10, dull aching, nonradiating, not associated with food intake, no diarrhea/constipation, no yellowish discoloration of the skin/sclera, no abdominal distention. She complains of 1 episode palpitation today afternoon at rest, she feels it was regular beats, lasted for 10 minutes. Not associated with chest pain, diaphoresis, lightheadedness, leg swelling. No complaints of visual or tactile disturbances, hallucinations, peripheral neuropathy, seizure- like activity. The last time she experiences symptoms were many months ago. Hospital course 54-year-old female patient admitted for severe alcohol withdrawal. Patient had epigastric pain, nausea and vomiting. She was dehydrated and was treated with IV fluids, vitamins, IV diazepam and supportive measures. Patient had significant clinical improvement after two days. She is tolerating oral diet, denies any abdominal pain, nausea, vomiting, diarrhea, chest pain or shortness of breath. Patient is stable to be discharged with outpatient follow-up. Discharge physical exam General: Elderly female, thin, AAOx 4, malnourished, not in apparent distress Head: Normocephalic with an atraumatic Eyes: Pupils- 3mm, reacting to light, conjunctiva- anicteric Nose and throat: No polyps, septum- normal, no mucosal ulcers Neck: Supple, no lymphadenopathy, no carotid bruit Respiratory: No use of accessory muscles of respiration, Bilateral normal vesiscular breath sounds heard. No wheeze, rhochi or creps Cardiac: S1-S2 heard, rythm regular, no gallop/murmur Abdomen: non distended, no tenderness, no organomegaly, bowel sounds- heard Extremities: no clubbing, no pedal edema, no deformities, peripheral pulses- 2+ Skin: warm and dry, no rash, no purpura Neuro: Trace tremors present- both hands, no nystagmus, No focal deficit, gross cranial nerve exam- normal Discharge medications Zofran Pantoprazole Thiamine Folic acid Multivitamin Discharge instructions Follow-up with primary care physician in 1-2 weeks Abstain from alcohol/nicotine use Increase water intake Lifestyle changes recommended for elevated cholesterol. Repeat your cholesterol level in three months. You might need statins if there're still elevated Come back in case of severe abdominal pain, persistent nausea and vomiting, increasing diarrhea, fever or any concerning symptoms Resident MD attestation The above note has been reviewed and supervised by a senior resident PGY2/PGY3 Patient was seen, examined and discussed with the attending physician Dr Fontanez *Problems/Diagnosis: (1) Alcohol withdrawal syndrome Status: Acute (2) Electrolyte abnormality Status: Acute (3) Dehydration Status: Acute (4) Nicotine use disorder Status: Chronic (5) Alcohol abuse with alcohol-induced disorder Status: Acute (6) Alcohol intoxication Status: Acute (7) Hypokalemia Status: Acute Total Time Spent on D/C: > 30 Minutes Date of Service: May 15, 2025 Billing Provider: DISHA FONTANEZ MD Common Visit Codes: 08719-XNP/OBS DISCH DAY >30min Problem Qualifiers (1) Alcohol withdrawal syndrome: Complication of substance-induced condition: with unspecified complication Qualified Codes: F10.939 - Alcohol use, unspecified with withdrawal, unspecified RAYMOND DELGADO, RES May 15, 2025 11:01 NEHEMIAS MAR, RES May 15, 2025 19:05 DISHA FONTANEZ MD May 16, 2025 14:26
[2025-05-15] MEDS ORDERED: ONDA-243 PO (11:13)
[2025-05-15] MEDS ORDERED: THIA50TA10 PO (11:13)
[2025-05-15] MEDS ORDERED: FOLI0.4T3 PO (11:13)
[2025-05-15] MEDS ORDERED: MULT-1085 PO (11:13)
[2025-05-15] MEDS ORDERED: PANT-47 PO (11:13)
== END 2025-05-15 11:55 | disposition home or self-care (01) | DRG 241 ==
LOC: ER 16:06 → ED HOLD 21:27 → EDBEDREQ 21:53 → ORTHO 4S 22:39
PROVIDERS: ADMIT Internal Medicine Critical Care Medicine; ATTEND Internal Medicine
DX: K29.20 Alcoholic gastritis without bleeding (principal); E78.00 Pure hypercholesterolemia, unspecified; E86.0 Dehydration; E87.6 Hypokalemia; F10.239 Alcohol dependence with withdrawal, unspecified; F17.210 Nicotine dependence, cigarettes, uncomplicated; R74.01 Elevation of levels of liver transaminase levels; Y90.0 Blood alcohol level of less than 20 mg/100 ml; Z98.891 History of uterine scar from previous surgery; Z71.6 Tobacco abuse counseling
CPT/HCPCS: 36415; 76700; 80048; 80053; 80061; 80076; 80305; 80320; 81001; 82150; 82607; 82800; 82977; 83036; 83690; 83735; 85025; 85610; 86803; 87081; 87088; 87340; 87522; 96361; 96365; 96375; 97116; 97161; 99285; A6250; G0378; J0780; J2560; J3360; J3411; J3490; J7030

== ENCOUNTER 2025-07-06 13:11 | Emergency (ER) | payer MEDICAID ==
[~2025-07-06] VITALS: Ht 154.9 cm; Wt 56.4 kg
[~2025-07-06 13:11] MED LIST changes: +FOLI0.4T3 PO; -FOLI1TAB27 PO; +MULT-1085 PO; -NICO-687 TD; +ONDA-243 PO; +PANT-47 PO; -THIA100T70 PO; +THIA50TA10 PO
[2025-07-06 13:12] VITALS: BP 110/83; PULSE 121; RESP 16; TEMP 98.1; O2SAT 98
== END 2025-07-06 14:09 | disposition left against medical advice (07) ==
LOC: ER 13:12
DX: R10.84 Generalized abdominal pain (principal); R53.1 Weakness; R11.10 Vomiting, unspecified; Z53.21 Procedure and treatment not carried out due to patient leaving prior to being seen by health care provider
CPT/HCPCS: 99281

== ENCOUNTER 2025-07-13 20:02 | Emergency (ER) | payer MEDICAID ==
[~2025-07-13] VITALS: Ht 154.9 cm; Wt 65.0 kg
[2025-07-13 20:12] VITALS: BP 112/82; PULSE 124; RESP 19; TEMP 97.6; O2SAT 98
--- NOTE | 2025-07-13 20:22 | Physician Documentation ---
History of Present Illness Chief Complaint: Vomiting Stated Complaint: FLU Primary Medical Doctor: NONE HPI Patient is a pleasant 54-year-old female that presents to the emergency department for complaints of vomiting x4 days. Patient reports that she is a chronic alcoholic drinks approximately a gal of alcohol per day. Patient reports that she has been very sad over the last couple of days as her father . Patient reports he has been unable to keep anything down for several days patient reports fever chills nausea vomiting no diarrhea at this time. Medication Reconciliation Allergies: Coded Allergies: No Known Allergies (Unverified , 05/13/25) Scheduled Folic Acid (FOLIC ACID tablet), 1 TAB PO DAILY Multivitamin (Multi Vitamin Daily), 1 TAB PO DAILY Pantoprazole Sodium (PROTONIX tablet), 40 MG PO DAILY Thiamine HCl (Vitamin B-1), 2 TAB PO DAILY Scheduled PRN ONDANSETRON ODT 4mg tablet (Ondansetron Odt), 1 TAB PO Q6H PRN PRN for nausea/vomiting Miscellaneous Medications Home Med List (No Home Medications), (Reported) Past Medical History Past Medical History: Extremity Fracture Past Surgical History: Patient History: Patient reports no known family medical history. Alcohol Use: Abuse Drug Use: marijuana Lives with: Other Lives In: Home Occupation: unemployed Physical Exam Vital Signs: Temperature: 97.6, Source: Temporal, Heart Rate: 124, Respiratory Rate: 19, BP: 112/82, Pulse Oximetry: 98, Weight: 65.000 Progress Results/Orders Results/Orders Orders - JAZZY BEJARANO Urinalysis, Cult If Indicated (07/13/25 20:15) Hcg, Ur Ql (07/13/25 20:15) Cbc/Diff (07/13/25 20:15) BMP (07/13/25 20:15) Lipase (07/13/25 20:15) CMP (07/13/25 20:15) Ethanol (07/13/25 20:16) Drug Screen, Urine (07/13/25 20:16) Vital Signs 07/13/25 20:12 Temp 97.6 Pulse 124 Resp 19 B/P (MAP) 112/82 Pulse Ox 98 Departure Referrals: NO PRIMARY CARE PROVIDER (PCP) JAZZY BEJARANO Jul 13, 2025 20:22
== END 2025-07-13 21:19 | disposition left against medical advice (07) ==
LOC: ER 20:03
DX: R11.10 Vomiting, unspecified (principal); F12.90 Cannabis use, unspecified, uncomplicated; Z56.0 Unemployment, unspecified; Z79.899 Other long term (current) drug therapy; Z98.890 Other specified postprocedural states; Z53.21 Procedure and treatment not carried out due to patient leaving prior to being seen by health care provider
CPT/HCPCS: 99281

== ENCOUNTER 2025-08-24 21:27 | Emergency (ER) | payer MEDICAID | END 2025-08-24 22:43 | disposition left against medical advice (07) | LOC: ER 21:27 | DX: R10.9 Unspecified abdominal pain (principal); Z53.21 Procedure and treatment not carried out due to patient leaving prior to being seen by health care provider ==

== ENCOUNTER 2025-08-28 20:09 | Inpatient (IN) | payer MEDICAID ==
[~2025-08-28] VITALS: Ht 154.9 cm; Wt 60.4 kg
--- NOTE | 2025-08-28 20:44 | ELECTROCARDIOGRAPH REPORT ---
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 Eric Bro Measurements Intervals Anita Rate: 111 P: 72 IL: 115 QRS: 74 QRSD: 87 T: 83 QT: 357 QTc: 485 Interpretive Statements Sinus tachycardia Borderline prolonged QT interval Electronically Signed On 08-29-2025 11:17:[address] Eric Bro Please click the below link to view image of tracing.
[2025-08-28 20:48] LABS: MEAN PLATELET VOLUME 7.0 FL (7.4-10.4); RED CELL DISTRIBUTION WIDTH 15.2 % (11.5-14.5)
--- NOTE | 2025-08-28 20:54 | RADIOLOGY REPORT ---
CLINICAL HISTORY: Hypotension. TECHNIQUE: Single frontal view of the chest was obtained. COMPARISON: DI CHEST,SINGLE VIEW on DOS: 07/10/24. FINDINGS: DEVICES/LINES/TUBES: None. LUNGS: Clear. PLEURA: No pneumothorax or pleural effusion. MEDIASTINUM/OTHER: Normal heart size and mediastinal contours. Trachea is midline. BONES: Unremarkable. UPPER ABDOMEN: Unremarkable. IMPRESSION: No acute cardiopulmonary process.
[2025-08-28 20:59] LABS: APTT 27 SECONDS (22-32); INR 1.0 INR
[2025-08-28 21:03] LABS: CREATININE 0.81 MG/DL (0.40-0.90); ETHANOL 111 MG/DL (<10); TOTAL CARBON DIOXIDE 27.8 MMOL/L (24-32); eCRCL 60 ML/MIN; eGFR 74 ML/MIN
[2025-08-28] MEDS: ondansetron/PF 4mg/2ml inj IV ONE ×2 (21:11→21:14)
[2025-08-28] MEDS: ondansetron 4mg rapidly disintigrating tab PO ONE (21:14)
[2025-08-28] MEDS ORDERED: magnesium sulf-water 2g/50mL 50 ML IV ONE (21:20)
[2025-08-28] MEDS ORDERED: Potassium Cl inj 40 MEQ in normal saline 500ml IV soln 500 ML IV ONE (21:20)
[2025-08-28] MEDS: Potassium Cl inj 40 MEQ in sodium chloride 0.45% 500ml 500 ML IV ONE (21:29)
--- NOTE | 2025-08-28 21:49 | Physician Documentation ---
History of Present Illness ~ Chief Complaint: Abdominal Pain w/vomiting Stated Complaint: VOMITING BLOOD Time Seen by MD: 20:27 OK to notify your PCP?: Yes Primary Medical Doctor: NONE Source: patient, family Mode of Arrival: POV Exam Limitations: no limitations HPI This is a 54-year-old female significant past history of alcohol abuse coming in for nausea vomiting and alcohol withdrawal. Patient's father two weeks ago and she has been drinking heavier than normal. Patient drinks beers, hard liquor, wine. Patient started drinking when she was 13 years old and is drink heavily since. Admitted in May for alcohol withdrawal. CIWA approximately seven at this time and alcohol level is 111. States she has been vomiting for three days says there has been some bleeding unable to give an amount. Brought in by EMS from home. She is alert oriented x3 GCS of 15 no signs of severe distress at this time however tachycardic and hypertensive. States she has discomfort in the abdomen in the epigastric region with known PUD in the past. Patient unable to remember last time she had EGD but states she does not want one. She would like to talk to her 1st if EGD is recommended. States her stools have been darker than normal recently. Review of systems otherwise negative. Medication Reconciliation Allergies: Coded Allergies: No Known Allergies (Unverified , 05/13/25) Scheduled Folic Acid (FOLIC ACID tablet), 1 TAB PO DAILY Multivitamin (Multi Vitamin Daily), 1 TAB PO DAILY Pantoprazole Sodium (PROTONIX tablet), 40 MG PO DAILY Thiamine HCl (Vitamin B-1), 2 TAB PO DAILY Scheduled PRN ONDANSETRON ODT 4mg tablet (Ondansetron Odt), 1 TAB PO Q6H PRN PRN for nausea/vomiting Miscellaneous Medications Home Med List (No Home Medications), (Reported) Past Medical History Past Medical History: Extremity Fracture Past Surgical History: Patient History: Patient reports no known family medical history. Smoking Status: Current every day smoker Alcohol Use: Abuse Drug Use: marijuana Lives with: Other Lives In: Home Occupation: unemployed Review of Systems Constitutional: Reports: see HPI Eyes: Reports: no symptoms reported ENT: Reports: no symptoms reported Respiratory: Reports: no symptoms reported Cardiovascular: Reports: no symptoms reported Genitourinary: Reports: no symptoms reported Neurological: Reports: no symptoms reported Musculoskeletal: Reports: no symptoms reported Integumentary: Reports: no symptoms reported Physical Exam Vital Signs: Temperature: 98.9, Source: Oral, Heart Rate: 107, Respiratory Rate: 12, BP: 122/88, Pulse Oximetry: 100, Weight: 60.350 Oxygen Flow Rate: 0 Physical Exam General: Awake [mild] distress. Verbal Head: No trauma Eyes: Nl lids Nl conjunctiva. No eye discharge ENT: Mucous membranes Nl. Lips Nl. No lesions Neck: Supple. No JVD. No visible mass Resp: Rate normal. No respiratory distress. No retractions. Normal air flow. No wheezes, rhonchi, or rales. Heart: Sinus tachycardia Abdomen: Soft epigastric tenderness on palpation, resolved after meds. Musc/skeletal: No calf or popliteal tenderness. No edema Skin: No rash. No petechiae. Not diaphoretic Neuro: Alert, oriented. Normal speech Progress Results/Orders Results/Orders Orders - ERIK CLEMENT MD Urinalysis, Cult If Indicated (08/28/25 20:17) Hcg, Ur Ql (08/28/25 20:17) Chest,Single View (08/28/25 20:30) Electrocardiogram (08/28/25 20:30) Monitor (08/28/25 20:30) Saline Lock (08/28/25 20:30) Page Hospitalist (08/28/25 21:23) Fill Out Med Reconciliation (08/28/25 21:23) Completed Orders - ERIK CLEMENT MD Cbc/Diff (08/28/25 20:17) BMP (08/28/25 20:17) Lipase (08/28/25 20:17) CMP (08/28/25 20:17) PTT (08/28/25 20:30) Pt Inr (08/28/25 20:30) Type And Screen (08/28/25 20:30) Chest,Single View (08/28/25 20:30) Electrocardiogram (08/28/25 20:30) Ethanol (08/28/25 20:30) Ondansetron Disint. Tablet (Zofran Odt T (08/28/25 20:50) Ondansetron Inj. (Zofran 4mg/2ml Vial) (08/28/25 21:05) Thiamine Inj. (Thiamine Inj.) (08/28/25 21:15) Folic Acid Inj. (Folic Acid Inj.) (08/28/25 21:15) Ringers Solution, Lacted (Lactated Ringe (08/28/25 21:15) Magnesium Sulf-Water 2g/50ml (Magnesium (08/28/25 21:20) Potassium Cl Inj (Potassium Cl Inj) (08/28/25 21:20) Potassium Cl Inj (Potassium Cl Inj) (08/28/25 21:29) MG (08/28/25 20:38) Vital Signs 08/28/25 08/28/25 08/28/25 20:10 21:12 21:16 Temp 98.9 98.9 Pulse 116 107 Resp 16 13 12 B/P (MAP) 119/74 122/88 (99) Pulse Ox 99 100 O2 Flow Rate 0 0 Laboratory Tests Test 08/28/25 20:38 08/28/25 20:39 White Blood Count 9.7 Red Blood Count 2.99 L Hemoglobin 10.7 L Hematocrit 31.2 L Mean Corpuscular Volume 104.4 H Mean Corpuscular Hemoglobin 35.6 H Mean Corpuscular Hemoglobin Concent 34.1 Red Cell Distribution Width 15.2 H Platelet Count 840 H Mean Platelet Volume 7.0 L Neutrophils (%) (Auto) 84.2 H Lymphocytes (%) (Auto) 10.7 L Monocytes (%) (Auto) 4.0 Eosinophils (%) (Auto) 0.3 Basophils (%) (Auto) 0.8 Neutrophils # (Auto) 8.2 H Lymphocytes # (Auto) 1.0 L Monocytes # (Auto) 0.4 Eosinophils # (Auto) 0.0 Basophils # (Auto) 0.1 CBC Comment Sodium Level 138 Potassium Level 2.8 *L Chloride Level 98 L Carbon Dioxide Level 27.8 Anion Gap 12 Blood Urea Nitrogen 4 L Creatinine 0.81 Estimated GFR/1.73 m2 74 BUN/Creatinine Ratio 4.9 L Glucose Level 87 Calcium Level 9.0 Magnesium Level 1.6 Total Bilirubin 0.4 Aspartate Amino Transf (AST/SGOT) 42 H Alanine Aminotransferase (ALT/SGPT) 55 Alkaline Phosphatase 140 H Total Protein 7.0 Albumin 2.9 L Globulin 4.1 Albumin/Globulin Ratio 0.7 L Lipase 276 H Chemistry Comments Ethyl Alcohol Level 111 H Prothrombin Time 10.4 INR International Normalized Ratio 1.0 Activated Partial Thromboplast Time 27 Coagulation Comments Medical Decision Making Additional information obtaine: old records, family Findings EKG: Interpreted by me. Rate/Rhythm: [111 sinus tach] QRS/QTc: [QRS 87 QTC 485] ST segments/T waves: [No ST-elevation or depression] Impression: [Sinus tachycardia prolonged QT interval] Patient was given magnesium for a QT interval as well as for potassium uptake as she is hypokalemic to 2.8. Gave patient 40 mEq IV potassium. Gave patient 100 mg of thiamine and a dose of folic acid. Patient had a lactated Ringer as well for hydration as she has been unable to keep anything down for the past several days. Patient is going into alcohol withdrawal on re-evaluation CIWA approximately eight. Patient given 1 mg of Ativan for withdrawal symptoms and to help with anxiety. Hospitalist contacted for admission to the hospital for hypokalemia, alcohol withdrawal, intractable nausea vomiting, anemia, thrombocytosis. We discussed possible nonemergent EGD unless clinical changes occur. Patient had two large bore IVs one ultrasound-guided by myself on left arm and another by nursing staff on right. Approximately 7 minutes use coun seling patient on alcohol abuse and life changes. I discussed a medication naltrexone with patient which may benefit cravings and abstinence from alcohol. Patient was willing to have discussion and knows she needs to make changes in her life as her condition is advancing. Patient may benefit from social service for possible inpatient rehab at this time. Patient took out her IVs after she was admitted to the hospitalist. Hospitalist contacted several times blood in them know that patient was wanting to leave AMA. Nursing staff including charge nurse and physician tried to help patient understand the critical nature of her condition at this time. She states she just wants to go out and drink and smoke cigarettes at this time. I offered more Ativan due to delay in hospitalist feeling to patient while she was in the ED awaiting a bed and patient refused. She is alert oriented x3 with capacity however has several issues that need to be followed and further evaluated. Clinical impression is: Alcohol withdrawal, tachycardia, hypokalemia, thrombocytosis, possible GI bleed. Differential diagnosis includes all of the above Diff Dx GI Bleed:Consideration: Include: Blood loss anemia, Esophageal varicies, Esophagitis, Gastritis Departure Disposition: ADMITTED INPATIENT Admitted to Inpatient Unit: to hospitalist Impression: Primary Impression: Alcohol abuse with alcohol-induced disorder Additional Impression: Alcohol intoxication Condition: Unstable Referrals: NO PRIMARY CARE PROVIDER (PCP) Education Educated: Patient Educated regarding: diagnosis, treatment, prognosis Critical Care Note Total Time (mins): 31 Critical Care Note Patient was difficult access and needed ultrasound IV for large bore IV access. I was called to bedside several times for changing patient's condition and patient leaving ED. Patient has critical lab values immediately directed approximately 5 times while under my care to stay in the hospital and received proper treatment. However patient has full capacity at this time as she is alert oriented x3 answering questions appropriately and is her own power of atto rney. Offered medications to help relax and symptoms of alcohol withdrawal however she was not willing to undergo another IV at this time. Offered p.o. med while patient was awaiting bed upstairs however patient left AMA before meds could be given. Signature Scribe Signature: No scribe Attestation: Signed by Dr. Clement on August 31 2025 3:47 ERIK Powell MD Aug 28, 2025 21:49
[2025-08-28] MEDS: normal saline 1000ml 1,000 ML IV ONE (21:55)
[2025-08-28] MEDS: ringers solution, lacted 1,000 ML IV ONE (21:56)
[2025-08-28] MEDS ORDERED: magnesium Cl slow-release 64mg tablet PO PRN (22:05)
[2025-08-28] MEDS ORDERED: magnesium sulf-water 2g/50mL 50 ML IV PRN (22:05)
[2025-08-28] MEDS ORDERED: ondansetron/PF 4mg/2ml inj IV PRN (22:05)
[2025-08-28] MEDS ORDERED: metoclopramide 5 mg/ml inj IV PRN (22:05)
[2025-08-28] MEDS ORDERED: potassium Cl 20 mEq SR tablet PO PRN ×2 (22:05)
[2025-08-28] MEDS ORDERED: magnesium sulf-water 4G/100mL 100 ML IV PRN (22:05)
--- NOTE | 2025-08-28 22:17 | HISTORY AND PHYSICAL-Residence ---
History & Physical Providers to Resident Creating Document: JEAN AGUILARTIO ~ History of Present Illness Primary Medical Doctor: NONE Reason for Admit\Complaint: ETOH withdrawal History of Present Illness The patient is a 54-year-old female with a long history of alcohol use disorder. She reports starting alcohol use at age 13 has been drinking heavily since that time. Her usual daily intake includes 1 L of vodka along with the approximately 10 beers. Over the past month, following the of her father, her alcohol consumption has significantly increased. She presents with four days of intractable nausea and vomiting, with more than 10 episodes per day, and has been unable to tolerate oral intake. She also reports watery diarrhea and epigastric/upper abdominal pain rated seven to 8/10, described as dull and aching, nonradiating, and not associated with food intake. Her last alcohol drink was today at approximately 2:00 p.m., when she consumed a bottle of champagne. She reports tremor at rest, diaphoresis, and agitation, but denies hallucination or seizures. Notably, she was hospitalized from May 13 to 2024 for alcohol withdrawal and hypokalemia, during which she had similar symptoms of vomiting, nausea, tremulousness, and abdominal pain. On arrival today, her serum alcohol level was 111, and she was tachycardic and hypertensive. Her fiance, Chuy, was present at bedside and assisted with the history. Allergies: Coded Allergies: No Known Allergies (Unverified , 05/13/25) Home Medications Home Medications Active Multi Vitamin Daily (Multivitamin) 1 Each Tablet 1 Tab PO DAILY 30 Days Vitamin B-1 (Thiamine HCl) 50 Mg Tablet 2 Tab PO DAILY 30 Days FOLIC ACID tablet (Folic Acid) 0.4 Mg Tablet 1 Tab PO DAILY 30 Days Ondansetron Odt (Ondansetron HCl) 4 Mg Tab.rapdis 1 Tab PO Q6H PRN PRN 4 Days Reported No Home Medications (Home Med List) Each Past Medical History Past Medical History Not significant Past Surgical History Surgical History Comment Not significant Family History Family History: Patient reports no known family medical history. Past Social History Social History Comment Patient lives with her fiance. She consumes more than a L of vodka, Champagne, in 10-12 beers per day. She smokes 2/3 pack of cigarettes daily and uses marijuana occasionally. She denies using recreational drugs. Smoking: Cigarettes Alcohol Use: Abuse Drug Use: Marijuana Lives with: Other Lives In: Home Occupation: unemployed ROS All Other Systems: Reviewed and Negative ROS As stated above in the HPI, otherwise all systems are reviewed and negative. Exam Vitals: Vital Signs Date Time Temp Pulse Resp B/P (MAP) Pulse Ox O2 Delivery O2 Flow Rate FiO2 08/28/25 21:16 98.9 107 12 122/88 (99) 100 0 General: Awake and Alert, complaining of abdominal pain. HEENT: Conjunctiva pink, Sclera clear, Mucus Membranes dry. Neck: Supple without masses and tenderness. Resp: Unlabored. Lungs clear to auscultation bilaterally. Heart: Tachycardic, and regular rhythm, normal S1 and S2 without murmur, rub or gallop. Abdomen: Epigastric tenderness, left upper quadrant tenderness Extremities: No cyanosis,clubbing or edema. Skin: Warm and Dry. Diagnostic Data Last Recorded Lab Results: 08/28/25203708/28/252037 Diagnostic Data: Laboratory Tests Test 08/28/25 20:39 Prothrombin Time 10.4 SECONDS (9.0-12.0) INR International Normalized Ratio 1.0 INR Activated Partial Thromboplast Time 27 SECONDS (22-32) Coagulation Comments Advance Care Planning Advanced Care plannin - 30 Minutes Additional Plan 1. BROOKE (Alcohol Withdrawal Symptoms): CIWA-Ar Score: 19 Last drink earlier today, ethanol level 111 Autonomic symptoms (palpitations, sweating, tachycardia, elevated blood pressure, hyperthermia) Anxiety, insomnia, Tremor, Headaches, Anorexia, nausea, vomiting Plan: [facility] protocol with symptom triggered lorazepam IV Thiamine, and folic acid for now as she can not tolerate oral intake. Switch to oral as tolerated IV hydration; LR 150 mL/hours Fall/seizure precautions Monitor vitals and mental status closely 2. Acute pancreatitis - likely alcohol-induced Lipase 276 Ultrasound abdomen on 05/14/2025 ruled out gallstones Triglyceride 42 on 05/13/2025 Plan: NPO for now; advance diet as tolerated Aggressive IV hydration; received 1 L of NS bolus, continue LR 150 mL/hour Pain and nausea control; morphine, Zofran, and Reglan Trend lipase and clinical course 3. Hypokalemia: Potassium 2.8 Likely from vomiting, poor oral intake, and alcohol use Plan: Replete potassium; potassium replacement protocol place Magnesium pending Continuous telemetry potassium < three 4. Elevated liver enzymes/alcohol-related liver injury AST 42, ALT 55, alk-phos 140, albumin 2.9 Plan: Avoid hepatotoxins including acetaminophen Trend CMP and INR Provided counseling on alcohol cessation 5. Macrocytic anemia Hemoglobin 10.7, MCV 104.4 Likely alcohol related Continue folic acid 6. Thrombocytosis: Platelet 840 K Likely reactive; stress, dehydration, and ETOH withdrawal Trend platelet count 7. Alcohol use disorder, severe Long history with recent escalation after bereavement gate services supervisor consulted Consider medications for relapse prevention once stabilized Counseling provided 8. Tobacco Use Disorder Smokes 3/4 PPD Nicotine patch Counseling provided Code status: Full code DVT prophylaxis: Silverio Aguilar Internal Medicine Resident, PGY-3 Addendum I personally reviewed the chart, labs and imaging and reviewed the patient with the team. I agree with the assessment and plan as documented by the resident. Patient was seen through remote audio-visual assessment through HIPAA compliance setup. Date of Service: Aug 28, 2025 Billing Provider: CHUCHO BARDALES MD, SHAMS, RES Aug 28, 2025 22:17 CHUCHO BARDALES MD Aug 29, 2025 03:22
[2025-08-29] MEDS: nicotine 14mg patch - 24hr TD ONE (00:36)
[2025-08-29] MEDS: ringers solution, lacted 1,000 ML IV SCH (00:54)
[2025-08-29 01:00] VITALS: BP 128/92; PULSE 110; RESP 16; TEMP 98.9; O2SAT 99
[2025-08-29] MEDS: enoxaparin 40mg/0.4ml syringe SUBCUT SCH (01:00)
[2025-08-29] MEDS: morphine 4 MG/ML inj SYRINge IV SCH (02:00)
[2025-08-29] MEDS: thiamine 100mg/ml 2ml inj. IV ONE (02:28)
[2025-08-29] MEDS: folic acid 1mg/0.2ml inj IV ONE (02:39)
[2025-08-29] MEDS: potassium Cl 40MEQ/1/2NS 520ml 520 ML IV PRN (02:43)
[2025-08-29 03:00] LABS: RED CELL DISTRIBUTION WIDTH 15.3 % (11.5-14.5)
[2025-08-29 03:02] LABS: MEAN PLATELET VOLUME 7.3 FL (7.4-10.4)
[2025-08-29 03:11] LABS: APTT 27 SECONDS (22-32); INR 1.1 INR
[2025-08-29 03:26] LABS: CREATININE 0.56 MG/DL (0.40-0.90); PHOSPHORUS 3.0 MG/DL (2.3-4.5); TOTAL CARBON DIOXIDE 30.0 MMOL/L (24-32); eCRCL 87 ML/MIN; eGFR > 90 ML/MIN
[2025-08-29] MEDS ORDERED: folic acid 1mg/0.2ml inj IV SCH (08:00)
[2025-08-29] MEDS ORDERED: thiamine 100mg/ml 2ml inj. IV SCH (08:00)
[2025-08-29] MEDS ORDERED: K and/or MAG REPLACEMENT MC SCH (08:00)
== END 2025-08-29 04:42 | disposition left against medical advice (07) | DRG 282 ==
LOC: ER 20:10 → ED HOLD 21:42
PROVIDERS: ADMIT Internal Medicine Sleep Medicine; ATTEND Internal Medicine Sleep Medicine
DX: K85.20 Alcohol induced acute pancreatitis without necrosis or infection (principal); D64.9 Anemia, unspecified; F10.129 Alcohol abuse with intoxication, unspecified; F10.139 Alcohol abuse with withdrawal, unspecified; D75.839 Thrombocytosis, unspecified; E87.6 Hypokalemia; F17.210 Nicotine dependence, cigarettes, uncomplicated; F41.9 Anxiety disorder, unspecified; Z98.891 History of uterine scar from previous surgery; Z79.899 Other long term (current) drug therapy
CPT/HCPCS: 36415; 71045; 80053; 80320; 83690; 83735; 84100; 85025; 85610; 85730; 86885; 86900; 86901; 93005; 96361; 96374; 96375; 99285; G0378; J1650; J2060; J2405; J3411; J3480; J3490; J7120